=== PATIENT | female | born 1955 | race Caucasian/White ===

== ENCOUNTER → 2017-08-09 18:23 | Outpatient (CLI) | payer OTHER, SELFPAY | PROVIDERS: Family Provider Family Medicine; PCP Family Medicine; Visit Provider Family Medicine | DX: R30.0 Dysuria (principal) | CPT/HCPCS: 87077; 87086; 87088; 87186 ==

== ENCOUNTER → 2018-05-20 06:39 | Outpatient (CLI) | payer OTHER, SELFPAY ==
--- NOTE | 2018-05-20 07:00 | BI_ITS ---
MAMMOGRAPHY - BILATERAL SCREENING REASON FOR EXAM: Female, 62 years old. Routine annual screening examination. PERTINENT HISTORY: Mother with breast cancer. TECHNIQUE: Digital bilateral breast adela (3D mammographic acquisition) in the CC and MLO projections. 2-D mediolateral oblique (MLO) and craniocaudad (CC) views of both breasts were obtained. CAD: Full Field Digital Mammography with Computer Added Detection was performed. COMPARISON: Comparison is made with prior study dated May 05, 2017 and May 04, 2016. FINDINGS: Breast Composition: The breasts are heterogeneously dense, which may obscure small masses. There are no dominant masses or suspicious calcifications. No other significant abnormalities are identified. There has been no significant change since the prior study. BI/SCREENING MAMM (CAD), BILAT IMPRESSION: Stable bilateral screening mammogram. Yearly follow-up mammogram recommended. (A) ASSESSMENT CATEGORY: BIRADS Category 1: Negative. A letter regarding these results will be sent to the patient by the facility within 30 days. Approximately 10% of breast cancers are not detected by mammography. A normal mammogram should not delay biopsy of a clinically suspicious abnormality. [id number] Electronically Signed: Charlie Ellis MD at 9:05 EST Tel [phone], Service support ,
[2018-05-20 07:34] LABS: Absolute Lymphocyte Count 1.68 X10^3/ul (0.83-4.51); Absolute Neutrophil Count 3.6 X10^3/uL (2.0-7.7); Basophil# 0.01 X10^3/uL; Basophil% 0.2 % (0-1); Eosinophil# 0.15 X10^3/uL; Eosinophils% 2.6 % (0-5); Hematocrit 36.9 % (37-47); Hemoglobin 11.3 g/dl (12.0-15.0); Lymphocyte # 1.68 X10^3/ul (4.0); Lymphocyte % 28.9 % (19-41); Mean Corp Hgb Conc 30.6 g/gl (32-36); Mean Corpuscular Hgb 25.6 pg (27.0-32.0); Mean Corpuscular Volume 83.7 fL (81-99); Mean Platelet Vol. 10.4 fl (6.2-12.0); Monocyte# 0.41 X10^3/uL; Monocyte% 7.1 % (0-10); Neutrophil # 3.56 X10^3/uL (2.7-7.7); Neutrophil % 61.2 % (47-70); POSITIVE COUNT NO; POSITIVE DIFFERENTIAL NO; POSITIVE MORPHOLOGY NO; Platelet Count 275 K/mm3 (150-450); RBC Distribution Width CV 15.4 % (11.6-14.6); RBC Distribution Width SD 47.6 fl (35.1-43.9); Red Blood Count 4.41 M/mm3 (4.2-5.4); White Blood Count 5.8 K/mm3 (4.4-11.0)
[2018-05-20 07:58] LABS: ALB/GLOB Ratio 0.8 RATIO (0.9-2.4); AST(SGOT) 23 U/L (15-37); Alanine Aminotransfer ALT/SGPT 30 U/L (13-56); Albumin, Serum 3.3 g/dL (3.2-5.0); Alkaline Phosphatase 70 U/L (45-117); Anion Gap 7 (5-15); BUN 20 mg/dL (7-18); BUN/Creat Ratio 21.3 RATIO (10-20); Calcium,Total 8.9 mg/dL (8.5-10.1); Chloride 107 mmol/L (98-107); Cholesterol 182 mg/dL (200); Creatinine, Serum 0.94 mg/dL (0.55-1.02); EST Glomerular Filtration Rate 64 mL/min (>60); Est Glom Filt Rate - Afr Amer 77 mL/min (>60); Globulin 3.9 g/dL (2.2-4.2); Glucose 87 mg/dL (74-106); High Density Lipoprotein 57 mg/dL; Potassium 4.1 mmol/L (3.5-5.1); Protein, Total 7.2 g/dL (6.4-8.2); Sodium Level 143 mmol/L (136-145); T4 Free Direct 1.14 ng/dL (0.76-1.46); Thyroid Stim Hormone (TSH) 1.73 uIU/mL (0.358-3.74); Triglycerides 80 mg/dL; Very Low Density Lipoprotein 16 mg/dL (5-40)
== END ==
PROVIDERS: Family Provider Family Medicine; PCP Family Medicine; Referring Provider Family Medicine; Visit Provider Family Medicine
DX: Z12.31 Encounter for screening mammogram for malignant neoplasm of breast (principal); E03.9 Hypothyroidism, unspecified; E78.5 Hyperlipidemia, unspecified; Z51.81 Encounter for therapeutic drug level monitoring
CPT/HCPCS: 36415; 77063; 77067; 80053; 80061; 84439; 84443; 85025

== ENCOUNTER → 2018-11-03 06:26 | Outpatient (CLI) | payer MEDICARE, SELFPAY ==
[2018-10-18 11:40] VITALS: BMI 28.0
--- NOTE | 2018-11-04 12:56 | STRESSREP ---
Stress Test Report Date: November 03, 2018 Procedure: Exercise tolerance test/imaging study Indications: Abnormal calcium score Consent: Per the patient Procedure: The patient exercised on a Reji protocol for 7 minutes achieving a peak heart rate of 150 bpm (96 % predicted maximal heart rate) with a peak blood pressure 148/80 mmHg and a peak MET capacity of 8.5 METs. The baseline ECG demonstrated normal sinus rhythm half a millimeter ST depressions in the lateral leads and inferior leads. The peak exercise ECG demonstrated 1.[address] depression in the inferior and lateral leads. EKG during recovery revealed return of ST segments to baseline. These findings would be considered positive for exercise induced EKG changes of ischemia. However presence of baseline ST abnormalities reduces the specificity of these results. [There were no cardiac dysrhythmias pretest, during exercise, or recovery]. The functional capacity was considered normal for age. There was [no complaint of chest discomfort during exercise or recovery]. The examination was discontinued secondary to dyspnea. Impression: 1. Technically adequate (percent predicted maximal heart rate greater than 85%) exercise tolerance test 2. Stress test is positive for exercise-induced EKG changes of ischemia. However due to baseline ST T changes the specificity of this findings is reduced. 3. The test test negative for exercise-induced chest pain 4. Functional capacity is normal for age. 5. Nuclear images pending Myocardial perfusion imaging study: Technique: The patient was injected with 11.8 mCi of technetium 99m Cardiolite and subsequently rest SPECT Cardiolite nuclear imaging was obtained in the horizontal long, vertical long, and short axis views. The patient exercised on a Reji protocol for 7 minutes achieving a peak heart rate of 150 bpm (96 % predicted maximal heart rate) with a peak blood pressure 148/80 mmHg and a peak MET capacity of 8.5 METs. The patient was injected with 33.2 mCi of technetium 99m Cardiolite and subsequently stress SPECT Cardiolite nuclear imaging was obtained in the horizontal long, vertical long, and short axis views. A gated Cardiolite study at peak stress was obtained. Interpretation: Rest and stress SPECT Cardiolite nuclear imaging status post realignment, normalization, and attenuation correction, demonstrates mildly decreased radioisotope uptake in the apex in both the rest and stress images. There is no significant reversibility suggestive of significant ischemia. The gated Cardiolite study demonstrates no significant regional wall motion abnormalities. The reported LVEF is 53 %. These findings are suggestive of apical thinning, a normal variant. Impression: 1. There is no evidence of significant ischemia or infarction. 2. The gated Cardiolite study reports an LVEF of 53 %. This note was generated with [employer] dictation software. It may contain incorrect words, spelling, and punctuation that were not noted in checking the note before signing.
== END ==
PROVIDERS: Family Provider Family Medicine; PCP Family Medicine; Referring Provider Specialist; Visit Provider Specialist
DX: R93.1 Abnormal findings on diagnostic imaging of heart and coronary circulation (principal); R06.00 Dyspnea, unspecified
CPT/HCPCS: 78452; 93017; A9500; A4216

== ENCOUNTER → 2018-11-25 09:13 | Outpatient (CLI) | payer MEDICARE, SELFPAY ==
[2018-11-21 13:35] VITALS: BMI 28.2
--- NOTE | 2018-11-25 09:37 | RAD_ITS ---
STUDY: X-RAY CHEST REASON FOR EXAM: Female, 63 years old. Chest pain/pressure TECHNIQUE: PA and lateral views of the chest. COMPARISON: 2011 FINDINGS: There are interstitial fibrotic changes of the lungs. There is no demonstrated pleural abnormality. Normal size heart. Normal mediastinum and sudhir. Normal visualized pulmonary arteries. Normal visualized aortic arch and descending thoracic aorta. Normal visualized thoracic spine. Normal visualized ribs, clavicles, and shoulders. There is no demonstrated abnormality of the visualized soft tissue structures of the upper abdomen. RAD/Chest PA and Lateral IMPRESSION: No acute pulmonary process Electronically Signed: Jonathon Nesbitt MD at 11:52 EDT , Service support ,
[2018-11-25 10:00] LABS: Absolute Lymphocyte Count 1.53 X10^3/ul (0.83-4.51); Absolute Neutrophil Count 3.1 X10^3/uL (2.0-7.7); Basophil# 0.01 X10^3/uL; Basophil% 0.2 % (0-1); Eosinophil# 0.24 X10^3/uL; Eosinophils% 4.6 % (0-5); Hematocrit 38.2 % (37-47); Hemoglobin 11.9 g/dl (12.0-15.0); Lymphocyte # 1.53 X10^3/ul (4.0); Lymphocyte % 29.5 % (19-41); Mean Corp Hgb Conc 31.2 g/gl (32-36); Mean Corpuscular Hgb 24.5 pg (27.0-32.0); Mean Corpuscular Volume 78.8 fL (81-99); Mean Platelet Vol. 11.1 fl (6.2-12.0); Monocyte# 0.34 X10^3/uL; Monocyte% 6.6 % (0-10); Neutrophil # 3.05 X10^3/uL (2.7-7.7); Neutrophil % 58.9 % (47-70); POSITIVE COUNT NO; POSITIVE DIFFERENTIAL NO; POSITIVE MORPHOLOGY NO; Platelet Count 253 K/mm3 (150-450); RBC Distribution Width CV 16.6 % (11.6-14.6); RBC Distribution Width SD 47.7 fl (35.1-43.9); Red Blood Count 4.85 M/mm3 (4.2-5.4); White Blood Count 5.2 K/mm3 (4.4-11.0)
[2018-11-25 10:21] LABS: Anion Gap 3 (5-15); BUN 19 mg/dL (7-18); BUN/Creat Ratio 22.2 RATIO (10-20); Calcium,Total 9.2 mg/dL (8.5-10.1); Chloride 109 mmol/L (98-107); Creatinine, Serum 0.85 mg/dL (0.55-1.02); EST Glomerular Filtration Rate 71 mL/min (>60); Est Glom Filt Rate - Afr Amer 86 mL/min (>60); Glucose 97 mg/dL (74-106); Potassium 4.3 mmol/L (3.5-5.1); Sodium Level 138 mmol/L (136-145)
== END ==
PROVIDERS: Family Provider Family Medicine; PCP Family Medicine; Referring Provider Specialist; Visit Provider Specialist
DX: R94.39 Abnormal result of other cardiovascular function study (principal); R93.1 Abnormal findings on diagnostic imaging of heart and coronary circulation
CPT/HCPCS: 36415; 71046; 80048; 85025

== ENCOUNTER 2018-12-19 08:02 | Day surgery (SDC) | payer MEDICARE, SELFPAY ==
[2018-11-21 13:35] VITALS: BMI 28.2
[2018-12-16 08:59] VITALS: BMI 28.2
--- NOTE | 2018-12-19 11:27 | CL.D_ITS ---
Patient Name: YULISA WONG Study Date: 12/19/2018 Performing: Glory Soto MD Ht: 66.14 inches 168 cm : 1955 Wt: 174.17 lbs 79 kg Age: 63 Gender: female BSA: 1.89 PROCEDURE(S) PERFORMED [facility] CLINICAL PROFILE AND INDICATIONS Indications: Abnormal Ca score and stress test Heart Failure: None Stress/Imaging Date: 11/03/18 CAD Presentations: No Sxs, no angina. CONCLUSIONS CAD as described RECOMMENDATIONS As patient is asymptomatic from CAD standspoint, it will be reasonable to treat her medically at this time. DESCRIPTION OF PROCEDURE The patient arrived to the procedure lab. The risks and benefits of the procedure as well as a full d escription of our services here and current unavailability of surgical backup were fully explained to the patient and/or their significant other prior to the catheterization. The Timeout was completed, verifying the correct patient and procedure. The patient's procedural site was prepped and draped in the usual fashion. Local anesthetic was given subcutaneously to right radial region with Lidocaine 2% . Using a modified Seldinger technique, arterial access was obtained via the right radial artery, a 6 Fr sheath was inserted. Left Coronary Artery selective angiography was performed in multiple views u sing a 5 Fr. 4.0 Lettsworth catheter. Right Coronary Artery selective angiography was then performed in mu ltiple views using a 5 Fr. JR 4 catheter. Left Ventriculography was performed in GARCIA projection using a 5 Fr.. LV to AO pullback pressures were then recorded.The arterial sheath was pulled and a TR Band was applied for hemostasis CORONARY ANGIOGRAPHY DOMINANCE: Right Dominant LEFT HEART ASSESSMENT Left Ventricular Ejection Fraction: by LV Gram 50-55 % Normal LV wall motion LEFT MAIN: Mild luminal irregularities LEFT ANTERIOR DESCENDING ARTERY: MID LAD: 70 % Stenosis, 50 % Stenosis DIAGONAL 1: Mid - 70 % Stenosis CIRCUMFLEX ARTERY: Mild luminal irregularities OM 2: Proximal - 30 % Stenosis RIGHT CORONARY ARTERY: Mild luminal irregularities VALVE FINDINGS: No Aortic Valve Stenosis No Mitral Insufficency COMPLICATIONS No Complications PROCEDURE MEDICATIONS Versed 1 mg IV Fentanyl 50 mcg IV Oxygen: 2 L/min via nasal cannula Heparin given IA 12/19/2018 10:39:29 Verapamil 2.5mg, Ntg 100mcgs, 3000 units of Heparin given IA 12/19/2018 10:39:29 SUMMARY OF HEMODYNAMIC DATA Time AIR REST ECG 08:26:13 AO 108/72 (90) SA 10:42:11 LV 123/-7, 6 10:49:51 LV 124/-7, 7 10:50:03 LV 122/-11, 5 10:50:41 LV 130/-11, 5 10:50:48 LVp 127/-9, 9 10:51:08 AOp 122/56 (85) 10:51:14 11:09:29 Signed By Glory Soto MD On 12/19/2018 11:26:33 AM Glory Soto MD
== END 2018-12-19 12:30 | disposition home or self-care (01) ==
LOC: CLSP 08:03
PROVIDERS: Family Provider Family Medicine; PCP Family Medicine; Referring Provider Specialist; Visit Provider Specialist
DX: I25.10 Atherosclerotic heart disease of native coronary artery without angina pectoris (principal); R93.1 Abnormal findings on diagnostic imaging of heart and coronary circulation; R94.39 Abnormal result of other cardiovascular function study; Z82.49 Family history of ischemic heart disease and other diseases of the circulatory system; K21.9 Gastro-esophageal reflux disease without esophagitis; E03.9 Hypothyroidism, unspecified; Z79.82 Long term (current) use of aspirin
CPT/HCPCS: 93458; 99152; 99153; J7040; C1769; C1894; Q9967

== ENCOUNTER → 2019-05-06 07:13 | Outpatient (CLI) | payer MEDICARE, SELFPAY ==
[2019-01-09 10:59] VITALS: BMI 27.7
[2019-05-06 08:28] LABS: AST(SGOT) 31 U/L (15-37); Alanine Aminotransfer ALT/SGPT 38 U/L (13-56); Albumin, Serum 3.3 g/dL (3.2-5.0); Alkaline Phosphatase 99 U/L (45-117); Cholesterol 153 mg/dL (200); High Density Lipoprotein 62 mg/dL; Protein, Total 7.3 g/dL (6.4-8.2); Triglycerides 94 mg/dL; Very Low Density Lipoprotein 19 mg/dL (5-40)
== END ==
PROVIDERS: Family Provider Family Medicine; PCP Family Medicine; Referring Provider Specialist; Visit Provider Specialist
DX: E78.5 Hyperlipidemia, unspecified (principal); R93.1 Abnormal findings on diagnostic imaging of heart and coronary circulation
CPT/HCPCS: 36415; 80061; 80076

== ENCOUNTER → 2019-06-22 09:23 | Outpatient (CLI) | payer MEDICARE, SELFPAY ==
[2019-01-09 10:59] VITALS: BMI 27.7
[2019-05-22 11:36] VITALS: BMI 28.2
--- NOTE | 2019-06-22 09:26 | BI_ITS ---
MAMMOGRAPHY - BILATERAL SCREENING REASON FOR EXAM: Female, 63 years old. Routine annual screening examination. PERTINENT HISTORY: Mother with breast cancer. TECHNIQUE: Digital bilateral breast radha (3D mammographic acquisition) in the CC and MLO projections. 2-D mediolateral oblique (MLO) and craniocaudad (CC) views of both breasts were obtained. CAD: Full Field Digital Mammography with Computer Added Detection was performed. COMPARISON: Comparison is made with prior study dated May 20, 2018 and May 05, 2017. FINDINGS: Breast Composition: The breasts are heterogeneously dense, which may obscure small masses. There are no dominant masses or suspicious calcifications. No other significant abnormalities are identified. There has been no significant change since the prior study. BI/SCREEN MAMM (CAD) W/RADHA BILAT IMPRESSION: Stable bilateral screening mammogram. Yearly follow-up mammogram recommended. (A) ASSESSMENT CATEGORY: BIRADS Category 1: Negative. A letter regarding these results will be sent to the patient by the facility within 30 days. Approximately 10% of breast cancers are not detected by mammography. A normal mammogram should not delay biopsy of a clinically suspicious abnormality. [id number] Electronically Signed: Charlie Ellis, at 11:07 EST , Service support ,
--- NOTE | 2019-06-22 09:28 | BD_ITS ---
STUDY: DUAL ENERGY X-RAY ABSORPTIOMETRY / DXA REASON FOR EXAM: Female, 63 years old. Age of naz- 54. Pat is 174.2# and 63 and quot; a loss of 1.5 and quot; per pat. Patient takes Levothyroxin and takes Risedronate. Exercises moderately. Family hx of osteo. Hx of a left elbow fx. TECHNIQUE: Bone Mineral Density (BMD) measurements of lumbar spine and bilateral hips were obtained. COMPARISON: Comparison is made with prior study dated January 14, 2010. FINDINGS: Lumbar Spine (L1-L4): g/cm2 (0.923) / T-score (-2.1) / Z-score (-0.5) Findings are suggestive of osteopenia with a high fracture risk. Increased thoracic kyphosis. Left Femur Total: g/cm2 (0.886) / T-score (-1.0) / Z-score (0.3) Left Femoral Neck: g/cm2 (0.780) / T-score (-1.9) / Z-score (-0.4) Right Femur Total: g/cm2 (0.887) / T-score (-1.0) / Z-score (0.3) Right Femoral Neck: g/cm2 (0.834) / T-score (-1.5) / Z-score (0.0) The T-Scores on the most recent prior examination were: Lumbar Spine (L1-L4): There has been worsening of bone density since the previous examination. Left Femur Total: which represents a worsening of 4.2%. Right Femur Total: which represents a worsening of 1.8%. BD/Dexa Bone Density Study IMPRESSION: The patient is considered osteopenic as outlined below according to World [employer] Organization (WHO) criteria with a high fracture risk. There has been worsening of bone density since the previous examination. Reference Information: The T-score is the number of standard deviations above or below the standard which is normal for young adults at their peak bone mineral density. The World Health Organization (WHO) interprets the T-scores as follows: Above -1 Normal bone density Between -1 and -2.5 Osteopenia Equal to / or below -2.5 Osteoporosis As a practical clinical guideline, osteopenia may be graded as follows: Mild -1 through -1.5 Moderate -1.6 through -2.0 Severe -2.1 through -2.4 The Z-score is the number of standard deviations above or below age-matched controls. A Z-score of less than -1.5 would be considered abnormal. References: 1. NIH Osteoporosis and Related Bone Diseases http://www.osteo.org 2. International Society for Clinical Densitometry http://www.iscd.org 3. National Osteoporosis Foundation http://www.nof.org Electronically Signed: Charlie Ellis, at 15:01 EST , Service support ,
== END ==
PROVIDERS: Family Provider Family Medicine; PCP Family Medicine; Referring Provider Family Medicine; Visit Provider Family Medicine
DX: Z12.31 Encounter for screening mammogram for malignant neoplasm of breast (principal); M81.0 Age-related osteoporosis without current pathological fracture; M85.80 Other specified disorders of bone density and structure, unspecified site
CPT/HCPCS: 77063; 77067; 77080

== ENCOUNTER → 2020-05-17 06:14 | Outpatient (CLI) | payer MEDICARE, SELFPAY ==
[2019-05-22 11:36] VITALS: BMI 28.2
[2020-05-17 07:43] LABS: AST(SGOT) 49 U/L (15-37); Alanine Aminotransfer ALT/SGPT 87 U/L (13-56); Albumin, Serum 3.5 g/dL (3.2-5.0); Alkaline Phosphatase 104 U/L (45-117); Bilirubin, Direct 0.16 mg/dL (0.00-0.30); Cholesterol 153 mg/dL (200); Globulin 3.6 g/dL (2.2-4.2); High Density Lipoprotein 56 mg/dL; Protein, Total 7.1 g/dL (6.4-8.2); Triglycerides 70 mg/dL; Very Low Density Lipoprotein 14 mg/dL (5-40)
== END ==
PROVIDERS: PCP Family Medicine; Referring Provider Nurse Practitioner Family; Visit Provider Nurse Practitioner Family
DX: E78.00 Pure hypercholesterolemia, unspecified (principal); E78.5 Hyperlipidemia, unspecified
CPT/HCPCS: 36415; 80061; 80076

== ENCOUNTER → 2020-07-03 07:54 | Outpatient (CLI) | payer MEDICARE, SELFPAY ==
[2020-05-22 11:30] VITALS: BMI 28.8
--- NOTE | 2020-07-03 07:57 | BI_ITS ---
MAMMOGRAPHY - BILATERAL SCREENING REASON FOR EXAM: Female, 64 years old. Routine annual screening examination. PERTINENT HISTORY: Mother with breast cancer. TECHNIQUE: Digital bilateral breast radha (3D mammographic acquisition) in the CC and MLO projections. 2-D mediolateral oblique (MLO) and craniocaudad (CC) views of both breasts were obtained. CAD: Full Field Digital Mammography with Computer Added Detection was performed. COMPARISON: Comparison is made with prior study dated 06/22/2019 and 05/20/2018. FINDINGS: Breast Composition: The breasts are heterogeneously dense, which may obscure small masses. There are no dominant masses or suspicious calcifications. No other significant abnormalities are identified. There has been no significant change since the prior study. BI/SCRN MAMM (CAD)W/RADHA BILAT IMPRESSION: Stable bilateral screening mammogram. Yearly follow-up mammogram recommended. (A) ASSESSMENT CATEGORY: BIRADS Category 1: Negative. A letter regarding these results will be sent to the patient by the facility within 30 days. Approximately 10% of breast cancers are not detected by mammography. A normal mammogram should not delay biopsy of a clinically suspicious abnormality. [id number] Electronically Signed: Charlie Ellis MD at 8:42 EST , Service support ,
== END ==
PROVIDERS: PCP Family Medicine; Referring Provider Family Medicine; Visit Provider Family Medicine
DX: Z12.31 Encounter for screening mammogram for malignant neoplasm of breast (principal); Z80.3 Family history of malignant neoplasm of breast
CPT/HCPCS: 77063; 77067

== ENCOUNTER 2020-08-15 16:03 | Outpatient (RCR) | payer MEDICARE, SELFPAY ==
[2020-05-22 11:30] VITALS: BMI 28.8
[2020-08-15] MEDS: COVID-19 VACC, MRNA(PFIZER)/PF 30 MCG/0.3 ML SYRINGE IM (07:54)
[2020-09-05] MEDS: COVID-19 VACC, MRNA(PFIZER)/PF 30 MCG/0.3 ML SYRINGE IM (07:39)
== END 2020-08-15 23:59 ==
LOC: IMMUN 16:03
PROVIDERS: PCP Family Medicine; Visit Provider Family Medicine
DX: Z23 Encounter for immunization (principal)
CPT/HCPCS: 0001A; 0002A

== ENCOUNTER → 2020-10-15 07:20 | Outpatient (CLI) | payer MEDICARE, SELFPAY ==
[2020-05-22 11:30] VITALS: BMI 28.8
[2020-10-15 08:15] LABS: ALB/GLOB Ratio 0.8 RATIO (0.9-2.4); AST(SGOT) 34 U/L (15-37); Alanine Aminotransfer ALT/SGPT 60 U/L (13-56); Albumin, Serum 3.3 g/dL (3.2-5.0); Alkaline Phosphatase 96 U/L (45-117); Anion Gap 5 (5-15); BUN 17 mg/dL (7-18); Calcium,Total 9.5 mg/dL (8.5-10.1); Chloride 105 mmol/L (98-107); Cholesterol 166 mg/dL (200); Creatinine, Serum 0.85 mg/dL (0.55-1.02); EST Glomerular Filtration Rate 71 mL/min (>60); Est Glom Filt Rate - Afr Amer 86 mL/min (>60); Globulin 3.9 g/dL (2.2-4.2); Glucose 91 mg/dL (74-106); High Density Lipoprotein 58 mg/dL; Protein, Total 7.2 g/dL (6.4-8.2); Sodium Level 138 mmol/L (136-145); Triglycerides 96 mg/dL; Very Low Density Lipoprotein 19 mg/dL (5-40)
== END ==
PROVIDERS: PCP Family Medicine; Referring Provider Specialist; Visit Provider Specialist
DX: E78.00 Pure hypercholesterolemia, unspecified (principal); I25.10 Atherosclerotic heart disease of native coronary artery without angina pectoris
CPT/HCPCS: 36415; 80053; 80061

== ENCOUNTER → 2020-12-14 08:52 | Outpatient (CLI) | payer MEDICARE, SELFPAY ==
[2020-05-22 11:30] VITALS: BMI 28.8
[2020-12-14 09:19] LABS: Absolute Lymphocyte Count 1.53 X10^3/uL (0.83-4.51); Absolute Neutrophil Count 2.8 X10^3/uL (2.0-7.7); Basophil# 0.02 X10^3/uL; Basophil% 0.4 % (0-1); Eosinophil# 0.09 X10^3/uL; Eosinophils% 1.9 % (0-5); Hematocrit 44.3 % (37-47); Lymphocyte # 1.53 X10^3/ul (0.83-4.51); Lymphocyte % 31.9 % (19-41); Mean Corp Hgb Conc 31.6 g/dL (32-36); Mean Corpuscular Hgb 28.4 pg (27.0-32.0); Mean Corpuscular Volume 89.9 fL (81-99); Mean Platelet Vol. 11.1 fl (6.2-12.0); Monocyte# 0.37 X10^3/uL; Monocyte% 7.7 % (0-10); NRBC Flagged by Analyzer 0 % (0-5); Neutrophil # 2.78 X10^3/uL (2.7-7.7); Neutrophil % 57.9 % (47-70); Platelet Count 223 K/mm3 (150-450); RBC Distribution Width SD 42.6 fl (35.1-43.9); Red Blood Count 4.93 M/mm3 (4.2-5.4); White Blood Count 4.8 K/mm3 (4.4-11.0)
[2020-12-14 09:54] LABS: Free T3 2.5 pg/mL (2.18-3.98); T4 Free Direct 1.23 ng/dL (0.76-1.46); Thyroid Stim Hormone (TSH) 0.89 uIU/mL (0.358-3.74)
== END ==
PROVIDERS: PCP Family Medicine; Referring Provider Family Medicine; Visit Provider Family Medicine
DX: Z51.81 Encounter for therapeutic drug level monitoring (principal); E03.9 Hypothyroidism, unspecified
CPT/HCPCS: 36415; 84439; 84443; 84481; 85025

== ENCOUNTER → 2021-05-17 07:30 | Outpatient (CLI) | payer MEDICARE, SELFPAY ==
[2021-05-17 08:18] LABS: AST(SGOT) 37 U/L (15-37); Alanine Aminotransfer ALT/SGPT 64 U/L (13-56); Albumin, Serum 3.3 g/dL (3.2-5.0); Alkaline Phosphatase 109 U/L (45-117); Bilirubin, Direct 0.12 mg/dL (0.00-0.30); Cholesterol 134 mg/dL (200); Globulin 3.9 g/dL (2.2-4.2); High Density Lipoprotein 55 mg/dL; Protein, Total 7.2 g/dL (6.4-8.2); Triglycerides 66 mg/dL; Very Low Density Lipoprotein 13 mg/dL (5-40)
== END ==
PROVIDERS: PCP Family Medicine; Referring Provider Nurse Practitioner Family; Visit Provider Nurse Practitioner Family
DX: E78.00 Pure hypercholesterolemia, unspecified (principal); E78.5 Hyperlipidemia, unspecified
CPT/HCPCS: 36415; 80061; 80076

== ENCOUNTER 2021-07-15 12:47 | Outpatient (CLI) | payer MEDICARE, SELFPAY ==
--- NOTE | 2021-07-15 12:52 | BI_ITS ---
MAMMOGRAPHY - BILATERAL SCREENING REASON FOR EXAM: Female, 65 years old. Routine annual screening examination. PERTINENT HISTORY: Mother with breast cancer. TECHNIQUE: Digital bilateral breast radha (3D mammographic acquisition) in the CC and MLO projections. 2-D mediolateral oblique (MLO) and craniocaudad (CC) views of both breasts were obtained. CAD: Full Field Digital Mammography with Computer Added Detection was performed. COMPARISON: Comparison is made with prior study dated 07/03/2020 and 06/22/2019. FINDINGS: Breast Composition: The breasts are heterogeneously dense, which may obscure small masses. There are no dominant masses or suspicious calcifications. Stable small benign-appearing bilateral axillary lymph nodes. No other significant abnormalities are identified. There has been no significant change since the prior study. BI/SCRN MAMM (CAD)W/RADHA BILAT IMPRESSION: Stable bilateral screening mammogram. Yearly follow-up mammogram recommended. (A) ASSESSMENT CATEGORY: BIRADS Category 2: Benign. A letter regarding these results will be sent to the patient by the facility within 30 days. Approximately 10% of breast cancers are not detected by mammography. A normal mammogram should not delay biopsy of a clinically suspicious abnormality. [id number] Electronically Signed: Charlie Ellis MD at 14:35 EST ,
--- NOTE | 2021-07-15 13:06 | BD_ITS ---
STUDY: DUAL ENERGY X-RAY ABSORPTIOMETRY / DXA REASON FOR EXAM: Female, 65 years old. V780. The patient is postmenopausal. TECHNIQUE: Bone Mineral Density (BMD) measurements of lumbar spine and bilateral hips were obtained. COMPARISON: Comparison is made with prior study dated 06/22/2019. FINDINGS: Lumbar Spine (L1-L4): g/cm2 (0.820) / T-score (-2.1) / Z-score (-0.1) Findings are suggestive of osteopenia with a high fracture risk. Left Femur Total: g/cm2 (0.802) / T-score (-1.2) / Z-score (0.2) Left Femoral Neck: g/cm2 (0.568) / T-score (-2.5) / Z-score (-0.9) Right Femur Total: g/cm2 (0.831) / T-score (-0.9) / Z-score (0.5) Right Femoral Neck: g/cm2 (0.630) / T-score (-2.0) / Z-score (-0.3) The T-Scores on the most recent prior examination were: Lumbar Spine (L1-L4): There has been improvement of bone density since the previous examination. Left Femur Total: which represents a worsening of 2.7%. Right Femur Total: which represents an improvement of 0.9%. BD/Dexa Bone Density Study IMPRESSION: The patient is considered osteopenic as outlined below according to World [employer] Organization (WHO) criteria with a high fracture risk. There has been improvement of bone density since the previous examination. Reference Information: The T-score is the number of standard deviations above or below the standard which is normal for young adults at their peak bone mineral density. The World Health Organization (WHO) interprets the T-scores as follows: Above -1 Normal bone density Between -1 and -2.5 Osteopenia Equal to / or below -2.5 Osteoporosis As a practical clinical guideline, osteopenia may be graded as follows: Mild -1 through -1.5 Moderate -1.6 through -2.0 Severe -2.1 through -2.4 The Z-score is the number of standard deviations above or below age-matched controls. A Z-score of less than -1.5 would be considered abnormal. References: 1. NIH Osteoporosis and Related Bone Diseases www osteo.org 2. International Society for Clinical Densitometry www iscd.org 3. National Osteoporosis Foundation www nof.org Electronically Signed: Charlie Ellis MD at 12:24 EST ,
== END 2021-07-15 23:59 | disposition short-term general hospital (02) ==
PROVIDERS: PCP Family Medicine; Referring Provider Family Medicine; Visit Provider Family Medicine
DX: Z12.31 Encounter for screening mammogram for malignant neoplasm of breast (principal); Z78.0 Asymptomatic menopausal state; Z80.3 Family history of malignant neoplasm of breast
CPT/HCPCS: 77063; 77067; 77080

== ENCOUNTER 2021-11-06 10:00 | Outpatient (RCR) | payer MEDICARE, SELFPAY ==
--- NOTE | 2021-10-21 09:10 | HP.PTEVAL_ITS ---
Patient's Visit Information YULISA WONG is a 65 year old F referred to Physical Therapy by Dr. Jessika Pink DO with a diagnosis of Hip Pain. Date of Evaluation: 10/21/21 Physical Therapist: Shana Cash DPT - Visit Plan Frequency: 2x /Week Duration: 4 Weeks Plan: Ultrasound- gentle hip and core strength/stabilization. HEP Given: gentle stretching into right SB and rotation - Subjective Patient reports that she is working on cleaning out her mothers house- she has pain now in her left hip for about 4 weeks. She went to chiro and that did not help. Pain is located on top of the iliac crest on the left hip. Best: 0/10 Eases: sitting or standing. Agg: side bending to the right, getting up from sitting, twisting. Feels more muscular. Describes the pain as dull and achy. Worst: 6/10. Sleep: stomach sleeper and it does wake her up when she transitions back and forth- but its getting better and not waking her up any more. No radiating pain. No history of back pain or hip pain. Walks about 2 miles a day- and it doesn't bother her- no weight lifting. No N/T in her toes. No loss or change of bowel or bladder. Work: retired teacher. PMHx: Hiatal Hernia Meds: omeprazole, atorvastatin, Imitrex (PRN), Levothyroxine - Objective Posture: FH, RS- can correct with verbal and tactile cues but does not maintain. Gait: no deviation noted. Transfers: sit to stand without UE A. HR/TR: able w ithout UE A. SLS: 30 sec without LOB or hip drop. ROM: Lumbar: WFL in all planes but reports discomfort with end range SB and rotation to the right, Hip/Knee/Ankle: WFL- no pain. Strength: Core: Fair, Hip: 4+/5 discomfort with IR/ER testing but not in the area she has pain, Knee: 5/5 Ankle: 5/5. Flex: HS: mild, Gastroc: mild. Palpation: not tender to touch - Special Tests L Hip Scour: Negative L Hip VITO - Intraarticular Pathology: Positive L Hip FADDIR - Labrum: Negative L Hip Impingement Provocation - Labrum: Negative L Hip Trendelenberg - Glut Medius: Negative L Hip Brittney - IT Band: Negative - Balance/Special Test Scores Lower Extremity Functional Score: 70 - Goals Goal 1:: Patient will be I with HEP and progression Goal Time Frame: 4-6 Weeks Goal 2:: Patient will maintain proper posture t/o tx session to demo increased core s/s Goal Time Frame: 4-6 Weeks Goal 3:: Patient will report no pain with all lumbar ROM Goal Time Frame: 4-6 Weeks Goal 4:: Patient will report 80% improvement Goal Time Frame: 4-6 Weeks - Rehabilitation Potential Physical Therapy Diagnosis: Patient presents with hypomobility- she has decreased LE and core strength/stabilization leading to poor body mechanics when lifting and increased pain in the left hip. Rehabilitation Potential: Good - Anticipated Interventions Patient/Client Instruction: Educate patient on: Benefits of Fitness Program Therapeutic Exercise to Include: Strength training, Endurance training, Balance training, Coordination, Agility training, Body mechanics, Postural training, Flexibilty training, Gait and locomotor training, Neuromotor development, Dynamic Lumbar Stabilization, Scapular Strength/Stabilization For the Purpose of:: To improve muscle performance and motor function TENS: Yes Cryotherapy (ice pack, ice massage): Yes Thermo therapy (hot pack): Yes Ultrasound (thermal/non thermal): Yes For the Purpose of:: To decrease pain Thank you for the opportunity to evaluate your patient. For Medicare and Medicare HMO plans, please review the plan of care and approve it. It will need to be FAXED BACK to us at [phone] for Medicare purposes. For Medicare only, by signing this I certify the plan of care. Please let me know if there are questions or concerns regarding this plan of care. Physician Signature: Date:
--- NOTE | 2021-11-06 10:12 | HP.PTDCSUM ---
It has been my pleasure to treat UYLISA WONG referred by Dr. Jessika Pink DO, with the diagnosis of Hip Pain for a total of 5 visit(s). Discharge Date: Please see the following information for a summary of their discharge status. Subjective: Patient reports that she has a torn tendon in her foot and it feels like its vivi the same. She has been doing the exercises but it comes back- she has relief for about an hour. If she is walking she is okay. Last weekend her back was bothering her but now its okay. She was sitting for long periods of time in a hard back chair or office chair its bad but the couch makes it better. Does not have an appt with her MD- so she plans to give them a call. Left Iliac Crest Pain Intensity (Out of 10): 5 % Improvement: 0 Objective/Function: Posture: FH, RS- can correct with verbal and tactile cues but does not maintain. Gait: no deviation noted. Transfers: sit to stand without UE A. HR/TR: able without UE A. SLS: 30 sec without LOB or hip drop. ROM: Lumbar: WFL in all planes but reports discomfort with end range SB and rotation to the right, Hip/Knee/Ankle: WFL- no pain. Strength: Core: Fair, Hip: 4+/5 discomfort with IR/ER testing but not in the area she has pain, Knee: 5/5 Ankle: 5/5. Flex: HS: mild, Gastroc: mild. Palpation: not tender to touch. No objective changes since IE Goal 1:: Patient will be I with HEP and progression Goal Progress: Goal Met Goal 2:: Patient will maintain proper posture t/o tx session to demo increased core s/s Goal Progress: Not Progressing Goal 3:: Patient will report no pain with all lumbar ROM Goal Progress: Not Progressing Goal 4:: Patient will report 80% improvement Goal Progress: Not Progressing Plan: 11/06: Return to MD for further evaluation- continue stretches as tolerated If there are questions or concerns regarding this patient's physical therapy, please feel free to call me at [phone]. Thank you for the referral of this patient. Sincerely, Shana Cash, DPT Balance/Gait/Functional tests - Balance/Special Test Scores Lower Extremity Functional Score: 69
== END 2021-11-06 16:26 | disposition home or self-care (01) ==
LOC: PT 10:00
PROVIDERS: PCP Family Medicine; Referring Provider Family Medicine; Visit Provider Family Medicine
DX: M25.552 Pain in left hip (principal)
CPT/HCPCS: 97035; 97110; 97162; 97164

== ENCOUNTER → 2021-11-24 | Outpatient (CLI) | payer MEDICARE, SELFPAY ==
--- NOTE | 2021-11-24 11:47 | RAD_ITS ---
STUDY: X-RAY - PELVIS AND LEFT HIP REASON FOR EXAM: Female, 66 years old. Pain. TECHNIQUE: 3 views of the pelvis and hip. COMPARISON: None. FINDINGS: There is a non-specific bowel gas pattern. Phleboliths. Osteopenia. Normal bilateral iliac wings, sacroiliac joints and visualized sacrum. Normal bilateral superior and inferior pubic rami. Mild arthrosis of the symphysis pubis. Normal bilateral ischial tuberosities. Mild arthrosis of both hips. 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 No acute abnormality, evidence of erosive changes or fusion. Electronically Signed: Austin Atwood MD at 13:26 EDT ,
== END | disposition home or self-care (01) ==
PROVIDERS: PCP Family Medicine; Referring Provider Family Medicine; Visit Provider Family Medicine
DX: M25.552 Pain in left hip (principal)
CPT/HCPCS: 73502

== ENCOUNTER → 2022-05-16 | Outpatient (CLI) | payer MEDICARE, SELFPAY ==
[2022-05-16 08:14] LABS: AST(SGOT) 37 U/L (15-37); Alanine Aminotransfer ALT/SGPT 65 U/L (13-56); Albumin, Serum 3.2 g/dL (3.2-5.0); Alkaline Phosphatase 101 U/L (45-117); Bilirubin, Direct 0.09 mg/dL (0.00-0.30); Cholesterol 133 mg/dL (200); Globulin 3.6 g/dL (2.2-4.2); High Density Lipoprotein 54 mg/dL; Protein, Total 6.8 g/dL (6.4-8.2); Triglycerides 89 mg/dL; Very Low Density Lipoprotein 18 mg/dL (5-40)
== END | disposition home or self-care (01) ==
LOC: LAB 07:09
PROVIDERS: PCP Family Medicine; Visit Provider Internal Medicine Cardiovascular Disease
DX: E78.5 Hyperlipidemia, unspecified (principal); I25.10 Atherosclerotic heart disease of native coronary artery without angina pectoris
CPT/HCPCS: 36415; 80061; 80076

== ENCOUNTER → 2022-07-17 | Outpatient (CLI) | payer MEDICARE, SELFPAY ==
--- NOTE | 2022-07-17 08:17 | BI_ITS ---
MAMMOGRAPHY - BILATERAL SCREENING REASON FOR EXAM: Female, 66 years old. Routine annual screening examination. PERTINENT HISTORY: Mother with breast cancer. TECHNIQUE: Digital bilateral breast radha (3D mammographic acquisition) in the CC and MLO projections. 2-D mediolateral oblique (MLO) and craniocaudad (CC) views of both breasts were obtained. CAD: Full Field Digital Mammography with Computer Added Detection was performed. COMPARISON: Comparison is made with prior study dated 07/15/2021 and 07/03/2020. FINDINGS: Breast Composition: The breasts are heterogeneously dense, which may obscure small masses. There are no dominant masses or suspicious calcifications. No other significant abnormalities are identified. There has been no significant change since the prior study. BI/SCRN MAMM (CAD)W/RADHA BILAT IMPRESSION: Stable bilateral screening mammogram. Yearly follow-up mammogram recommended. (A) ASSESSMENT CATEGORY: BIRADS Category 1: Negative. A letter regarding these results will be sent to the patient by the facility within 30 days. Approximately 10% of breast cancers are not detected by mammography. A normal mammogram should not delay biopsy of a clinically suspicious abnormality. [id number] Electronically Signed: Charlie Ellis MD at 10:25 EST ,
== END | disposition home or self-care (01) ==
LOC: OPBI 08:15
PROVIDERS: PCP Family Medicine; Referring Provider Family Medicine; Visit Provider Family Medicine
DX: Z12.31 Encounter for screening mammogram for malignant neoplasm of breast (principal)
CPT/HCPCS: 77063; 77067

== ENCOUNTER → 2023-05-21 | Outpatient (CLI) | payer MEDICARE, SELFPAY ==
[2023-05-21 08:40] LABS: AST(SGOT) 46 U/L (15-37); Alanine Aminotransfer ALT/SGPT 78 U/L (13-56); Albumin, Serum 3.3 g/dL (3.2-5.0); Alkaline Phosphatase 112 U/L (45-117); Bilirubin, Direct 0.09 mg/dL (0.00-0.30); Cholesterol 160 mg/dL (200); Globulin 3.8 g/dL (2.2-4.2); High Density Lipoprotein 58 mg/dL; Protein, Total 7.1 g/dL (6.4-8.2); Triglycerides 76 mg/dL; Very Low Density Lipoprotein 15 mg/dL (5-40)
== END | disposition home or self-care (01) ==
LOC: LAB 07:36
PROVIDERS: PCP Family Medicine; Referring Provider Physician Assistant Medical; Visit Provider Physician Assistant Medical
DX: I25.10 Atherosclerotic heart disease of native coronary artery without angina pectoris (principal); E78.5 Hyperlipidemia, unspecified
CPT/HCPCS: 36415; 80061; 80076

== ENCOUNTER → 2023-08-10 | Outpatient (CLI) | payer MEDICARE, SELFPAY ==
--- NOTE | 2023-08-10 08:12 | BI_ITS ---
MAMMOGRAPHY - BILATERAL SCREENING REASON FOR EXAM: Female, 67 years old. Routine annual screening examination. PERTINENT HISTORY: Mother with breast cancer. TECHNIQUE: Digital bilateral breast radha (3D mammographic acquisition) in the CC and MLO projections. 2-D mediolateral oblique (MLO) and craniocaudad (CC) views of both breasts were obtained. CAD: Full Field Digital Mammography with Computer Added Detection was performed. COMPARISON: Comparison is made with prior study dated July 17, 2022 and July 15, 2021. FINDINGS: Breast Composition: The breasts are heterogeneously dense, which may obscure small masses. There are no dominant masses or suspicious calcifications. No other significant abnormalities are identified. There has been no significant change since the prior study. BI/SCRN MAMM (CAD)W/RADHA BILAT IMPRESSION: Stable bilateral screening mammogram. Yearly follow-up mammogram recommended. (A) ASSESSMENT CATEGORY: BIRADS Category 1: Negative. A letter regarding these results will be sent to the patient by the facility within 30 days. Approximately 10% of breast cancers are not detected by mammography. A normal mammogram should not delay biopsy of a clinically suspicious abnormality. [id number] Electronically Signed: Charlie Ellis MD at 8:29 EST ,
--- NOTE | 2023-08-10 08:23 | BD_ITS ---
STUDY: DUAL ENERGY X-RAY ABSORPTIOMETRY / DXA REASON FOR EXAM: Female, 67 years old. [id number] TECHNIQUE: Bone Mineral Density (BMD) measurements of lumbar spine and bilateral hips were obtained. COMPARISON: Comparison is made with prior study of July 15, 2021. FINDINGS: Lumbar Spine (L1-L4): g/cm2 (0.832) / T-score (-2.0) / Z-score (0.1) Findings are suggestive of osteopenia with a moderate fracture risk. Left Femur Total: g/cm2 (0.796) / T-score (-1.2) / Z-score (0.3) Left Femoral Neck: g/cm2 (0.592) / T-score (-2.3) / Z-score (-0.5) Right Femur Total: g/cm2 (0.821) / T-score (-1.0) / Z-score (0.5) Right Femoral Neck: g/cm2 (0.630) / T-score (-2.0) / Z-score (-0.2) The T-Scores on the most recent prior examination were: Lumbar Spine (L1-L4): There has been improvement of bone density since the previous examination. Left Femur Total: which represents a worsening of 0.6%. Right Femur Total: which represents a worsening of 1.2%. BD/Dexa Bone Density Study IMPRESSION: The patient is considered osteopenic as outlined below according to World [place] Organization (WHO) criteria with a high fracture risk. There has been worsening of bone density since the previous examination. Reference Information: The T-score is the number of standard deviations above or below the standard which is normal for young adults at their peak bone mineral density. The World Health Organization (WHO) interprets the T-scores as follows: Above -1 Normal bone density Between -1 and -2.5 Osteopenia Equal to / or below -2.5 Osteoporosis As a practical clinical guideline, osteopenia may be graded as follows: Mild -1 through -1.5 Moderate -1.6 through -2.0 Severe -2.1 through -2.4 The Z-score is the number of standard deviations above or below age-matched controls. A Z-score of less than -1.5 would be considered abnormal. References: 1. NIH Osteoporosis and Related Bone Diseases www osteo.org 2. International Society for Clinical Densitometry www iscd.org 3. National Osteoporosis Foundation www nof.org Electronically Signed: Charlie Ellis MD at 9:23 EST ,
== END | disposition home or self-care (01) ==
LOC: OPBD 08:10
PROVIDERS: PCP Family Medicine; Referring Provider Family Medicine; Visit Provider Family Medicine
DX: Z12.31 Encounter for screening mammogram for malignant neoplasm of breast (principal); Z80.3 Family history of malignant neoplasm of breast; Z78.0 Asymptomatic menopausal state
CPT/HCPCS: 77063; 77067; 77080

== ENCOUNTER → 2023-08-10 | Outpatient (CLI) | payer MEDICARE, SELFPAY ==
[2023-08-10 12:18] LABS: Absolute Lymphocyte Count 1.42 X10^3/uL (0.83-4.51); Absolute Neutrophil Count 3.4 X10^3/uL (2.0-7.7); Basophil# 0.01 X10^3/uL; Basophil% 0.2 % (0-1); Eosinophils% 1.8 % (0-5); Hematocrit 42.5 % (37-47); Hemoglobin 13.3 g/dL (12.0-15.0); Lymphocyte # 1.42 X10^3/ul (0.83-4.51); Lymphocyte % 26.2 % (19-41); Mean Corp Hgb Conc 31.3 g/dL (32-36); Mean Corpuscular Hgb 27.5 pg (27.0-32.0); Mean Corpuscular Volume 87.8 fL (81-99); Monocyte# 0.44 X10^3/uL; Monocyte% 8.1 % (0-10); NRBC Flagged by Analyzer 0 % (0-5); Neutrophil # 3.43 X10^3/uL (2.7-7.7); Neutrophil % 63.5 % (47-70); Platelet Count 216 K/mm3 (150-450); RBC Distribution Width CV 13.8 % (11.6-14.6); RBC Distribution Width SD 44.4 fl (35.1-43.9); Red Blood Count 4.84 M/mm3 (4.2-5.4); White Blood Count 5.4 K/mm3 (4.4-11.0)
[2023-08-10 13:10] LABS: ALB/GLOB Ratio 0.9 RATIO (0.9-2.4); AST(SGOT) 37 U/L (15-37); Alanine Aminotransfer ALT/SGPT 60 U/L (13-56); Albumin, Serum 3.3 g/dL (3.2-5.0); Alkaline Phosphatase 106 U/L (45-117); Anion Gap 4 (5-15); BUN 20 mg/dL (7-18); BUN/Creat Ratio 25.2 RATIO (10-20); Calcium,Total 9.7 mg/dL (8.5-10.1); Chloride 110 mmol/L (98-107); Creatinine, Serum 0.79 mg/dL (0.55-1.02); EST Glomerular Filtration Rate 76 mL/min (>60); Est Glom Filt Rate - Afr Amer 92 mL/min (>60); Free T3 2.7 pg/mL (2.18-3.98); Globulin 3.6 g/dL (2.2-4.2); Glucose 94 mg/dL (74-106); Potassium 4.3 mmol/L (3.5-5.1); Protein, Total 6.9 g/dL (6.4-8.2); Sodium Level 140 mmol/L (136-145); T4 Free Direct 1.31 ng/dL (0.76-1.46); Thyroid Stim Hormone (TSH) 1.08 uIU/mL (0.358-3.74)
== END | disposition home or self-care (01) ==
LOC: BFHLAB 08:55
PROVIDERS: PCP Family Medicine; Visit Provider Family Medicine
DX: E03.9 Hypothyroidism, unspecified (principal); Z51.81 Encounter for therapeutic drug level monitoring
CPT/HCPCS: 36415; 80053; 84439; 84443; 84481; 85025

== ENCOUNTER → 2023-12-28 | Outpatient (CLI) | payer MEDICARE, SELFPAY ==
[2023-12-28 11:33] LABS: AST(SGOT) 39 U/L (15-37); Alanine Aminotransfer ALT/SGPT 58 U/L (13-56); Albumin, Serum 3.3 g/dL (3.2-5.0); Alkaline Phosphatase 110 U/L (45-117); Cholesterol 160 mg/dL (200); Globulin 3.8 g/dL (2.2-4.2); High Density Lipoprotein 57 mg/dL; Protein, Total 7.1 g/dL (6.4-8.2); Triglycerides 136 mg/dL; Very Low Density Lipoprotein 27 mg/dL (5-40)
== END | disposition home or self-care (01) ==
LOC: LAB 06:59
PROVIDERS: PCP Family Medicine; Referring Provider Physician Assistant Medical; Visit Provider Physician Assistant Medical
DX: E78.00 Pure hypercholesterolemia, unspecified (principal)
CPT/HCPCS: 36415; 80061; 80076

== ENCOUNTER → 2024-05-26 | Outpatient (CLI) | payer MEDICARE, SELFPAY ==
--- NOTE | 2024-05-26 10:17 | MRI_ITS ---
STUDY: MRI BRAIN WITH AND WITHOUT CONTRAST (ATTENTION INTERNAL AUDITORY CANALS - I.A.C.''s) REASON FOR EXAM: Female, 68 years old. RIGHT TINNITUS, bilat hearing loss TECHNIQUE: Standardized multiplanar fat and water weighted pulse sequences were obtained. IV CLARISCAN 15ML was administered for the contrast portion of the examination. COMPARISON: None. FINDINGS: Normal bilateral temporal bones. Normal bilateral internal auditory canals. There is no demonstrated intracanalicular or cisternal vestibular schwannoma (acoustic neuroma). There is no enhancement of the bilateral VIIth or VIIIth cranial nerves. Normal bilateral cochlea, vestibules and semicircular canals. There is mild cerebral atrophy with widening of the extra-axial spaces and ventricular dilatation. There are a limited number of small white matter hyperintensities, distributed throughout the deep white matter tracts of the cerebral hemispheres, consistent with mild chronic white matter ischemic changes. There is no evidence for recent intracranial ischemia or other cause of cytotoxic edema on diffusion weighted imaging (DWI). Normal bilateral basal ganglia. Normal thalami. Normal flow voids within the major intracranial circulation suggesting patency by spin echo criteria. Normal venous enhancement. There is no enhancing intra-axial or extra-axial abnormality. There is no extra-axial fluid accumulation. Normal sella turcica, pituitary gland, infundibular stalk, optic chiasm and hypothalamus. Normal tectal plate and pineal gland. Normal midbrain, antione and medulla. Normal cerebellum. Normal basal cisterns. There is an ocular lens implant the left globe. Normal right globe. The intraorbital contents otherwise are normal. Normal visualized paranasal sinuses. Normal calvarium and skull base. Normal visualized soft tissue structures. Normal visualized upper cervical spine. MRI/Brain W/WO Contrast IMPRESSION: Involutional changes of the brain, as described above. No MR evidence of vestibular schwannoma (acoustic neuroma). Electronically Signed: Quan Armijo MD at 9:41 EST ,
[2024-05-26 11:00] LABS: CREATININE FINGERSTICK < 1.0 mg/dL (0.55-1.02); EGFR FINGERSTICK > 60.0000 mL/min (>60)
== END | disposition home or self-care (01) ==
PROVIDERS: PCP Family Medicine; Referring Provider Otolaryngology; Visit Provider Otolaryngology
DX: H93.11 Tinnitus, right ear (principal)
CPT/HCPCS: 70553; A9575

== ENCOUNTER → 2024-06-29 | Outpatient (CLI) | payer MEDICARE, SELFPAY ==
[2024-06-29 08:36] LABS: AST(SGOT) 29 U/L (15-37); Alanine Aminotransfer ALT/SGPT 47 U/L (13-56); Albumin, Serum 3.3 g/dL (3.2-5.0); Alkaline Phosphatase 110 U/L (45-117); Bilirubin, Direct 0.13 mg/dL (0.00-0.30); Cholesterol 141 mg/dL (200); Globulin 3.6 g/dL (2.2-4.2); High Density Lipoprotein 59 mg/dL; Protein, Total 6.9 g/dL (6.4-8.2); Triglycerides 92 mg/dL; Very Low Density Lipoprotein 18 mg/dL (5-40)
== END | disposition home or self-care (01) ==
LOC: LAB 07:23
PROVIDERS: PCP Family Medicine; Referring Provider Physician Assistant Medical; Visit Provider Physician Assistant Medical
DX: E78.00 Pure hypercholesterolemia, unspecified (principal)
CPT/HCPCS: 36415; 80061; 80076

== ENCOUNTER → 2024-07-28 | Outpatient (CLI) | payer MEDICARE, SELFPAY ==
--- NOTE | 2024-07-28 08:57 | CDU_ITS ---
Reason For Study Reason For Study: BLE Carotid Bruit Rt. Velocities/BP Lt. Velocities/BP Prox CCA 65.8/15.7 cm/sec. Prox CCA 125.3/23.0 cm/sec. Mid CCA 74.3/22.3 cm/sec. Mid CCA 83.0/21.6 cm/sec. Dist CCA 103.9/30.2 cm/sec. Dist CCA 80.9/23.7 cm/sec. Prox ICA 57.2/15.7 cm/sec. Prox ICA 73.2/26.5 cm/sec. Mid ICA 83.3/24.8 cm/sec. Mid ICA 91.6/37.6 cm/sec. Dist ICA 108.9/32.1 cm/sec. Dist ICA 62.5/18.8 cm/sec. Rt. ICA/CCA = 1.5. Lt. ICA/CCA = 1.1. Prox ECA 135.2/16.7 cm/sec. Prox ECA 128.6/23.3 cm/sec. Rt. Vert. 66.7/18.5 cm/sec. Lt. Vert. 44.1/12.7 cm/sec. Right Extracranial There is heterogeneous, irregular atherosclerotic plaque noted in the right common carotid artery. There is heterogeneous, irregular atherosclerotic plaque noted in the right internal carotid artery. There is intimal thickening but no significant atherosclerotic plaque noted in the right external carotid artery. Antegrade flow is noted in the right vertebral artery. Left Extracranial There is intimal thickening but no significant atherosclerotic plaque noted in the left common carotid artery. There is intimal thickening but no significant atherosclerotic plaque noted in the left internal carotid artery. There is intimal thickening but no significant atherosclerotic plaque noted in the left external carotid artery. Antegrade flow is noted in the left vertebral artery. Procedure Carotid Duplex [id number]. This is a Carotid Duplex examination using B-mode, color flow and specral Doppler. The exam was diagnostic. Exam performed in department. VL/Carotid Duplex Ultrasound Interpretation Summary Mild (<50%) stenosis right extracranial internal carotid. Normal left extracranial internal carotid. Patent and antegrade vertebrals bilaterally. Ordering Physician: Bhumi Haro Referring Physician: Jessika Pink Performed By: Domenico Root RVT
== END | disposition home or self-care (01) ==
LOC: CVS 08:57
PROVIDERS: PCP Family Medicine; Referring Provider Physician Assistant Medical; Visit Provider Physician Assistant Medical
DX: R09.89 Other specified symptoms and signs involving the circulatory and respiratory systems (principal)
CPT/HCPCS: 93880

== ENCOUNTER → 2024-08-11 | Outpatient (CLI) | payer MEDICARE, SELFPAY ==
--- NOTE | 2024-08-11 10:24 | BI_ITS ---
PROCEDURE: SCRN MAMM (CAD)W/RADHA BILAT REASON FOR EXAM: F, Age 68 y/o, presents for annual screening mammogram. Family history of breast cancer in her mother at 64. TECHNIQUE: Bilateral screening digital breast tomosynthesis with 2D and 3D images. Computer aided detection. COMPARISON: 08/10/2023, 07/17/2022 FINDINGS: There are scattered areas of fibroglandular density. No suspicious masses, areas of developing architectural distortion, or suspicious calcifications. BI/SCRN MAMM (CAD)W/RADHA BILAT IMPRESSION: There is no mammographic evidence of malignancy. BI-RADS 1: NEGATIVE. RECOMMEND ANNUAL MAMMOGRAPHIC SCREENING. Follow-up code: Routine Follow-up The patient will be notified of the results by letter. Reading Location: [id number]
== END | disposition home or self-care (01) ==
LOC: OPBI 10:21
PROVIDERS: PCP Family Medicine; Referring Provider Family Medicine; Visit Provider Family Medicine
DX: Z12.31 Encounter for screening mammogram for malignant neoplasm of breast (principal); Z80.3 Family history of malignant neoplasm of breast
CPT/HCPCS: 77063; 77067

== ENCOUNTER → 2025-01-05 | Outpatient (CLI) | payer MEDICARE, SELFPAY ==
--- OUTSIDE RECORDS SUMMARY | 2025-01-05 07:18 | XMS RPT_ITS | CCD ---
Author Organization [facility] Care Team Providers Care Cheese Packer Name Role Phone Dr. Jessika Pink Primary Care Provider [phone] Dr. Harris Loo Attending Provider Dr. Jessika Pink Referring Provider Dr. Darrick Domínguez Attending Provider Dr. Jessika Pink Primary Care Provider Dr. Jessika Pink Referring Provider BENY Adams Attending Provider Bhumi Adams Attending Unavail able Raúlys, Jessika Primary Care Unavailable Bhumi Adams Referring Unavail able Boston Wilcox Referring Unavailable Boston Wilcox Attending Unavailable Malys, Jessika Primary Care Unavailable Bhumi Adams Attending Unavail able Raúlys, Jessika Primary Care Unavailable Bhumi Adams Referring Unavail able Malys, Jessika Primary Care Unavailable Malys, Jessika Referring Unavailable Malys, Jessika Attending Unavailable Forrest Burrows Attending Unavailable Malys, Jessika Primary Care Unavailable Bhumi Adams Referring Unavail able Malys, Jessika Primary Care Unavailable Bhumi Adams Attending Unavail able Malys, Jessika Referring Unavailable Malys, Jessika Primary Care Unavailable Bhumi Adams Attending Unavail able Bhumi Adams Referring Unavail able Dr. Jessika Pink DO Primary Care Provider [phone] Dr. Boston Wilcox MD Attending Provider [phone] Jeri TORRE, Dr. Mead Referring Provider [phone] Bhumi Adams Attending Provider Bhumi Adams Referring Provider Dr. Jessika Pink DO Referring Provider Dr. Forrest Burrows MD Attending Provider Dr. Jessika Pink DO Attending Provider Medications Current Medications Medication Drug Class(es) Dates Sig (Normalized) Sig (Original) aspirin 81 mg delayed release oral tablet (8 sources) Platelet Aggregation Inhibitor, Nonsteroidal Anti-inflammatory Drug Start: 10-18-2018 take 1 tablet by mouth once daily Aspirin 81 mg tablet,delayed release (DR/EC) Active 81 mg PO DAILY October 18, 2018 12:00am levothyroxine sodium 0.1 mg oral tablet (8 sources) l-Thyroxine Start: 10-12-2018 take 1 tablet by mouth once daily Levothyroxine 100 mcg tablet Active 100 ug PO DAILY October 12, 2018 12:00am omeprazole 40 mg delayed release oral capsule (8 sources) Proton Pump Inhibitor Start: 10-12-2018 take 1 capsule by mouth once daily Omeprazole 40 mg capsule,delayed release(DR/EC) Active 40 mg PO DAILY October 12, 2018 12:00am SUMAtriptan 50 mg oral tablet (13 sources) Serotonin-1b and Serotonin-1d Receptor Agonist Start: 10-12-2018 End: 05-26-2022 take 1 tablet by mouth once as needed for headache Sumatriptan Succinate 50 mg tablet Active 50 mg PO ONCE as needed for migraine headache May 26, 2022 11:00am Completed/Discontinued Medications Medication Drug Class(es) Dates Sig (Normalized) Sig (Original) atorvastatin 80 mg oral tablet (20 sources) HMG-CoA Reductase Inhibitor Start: 10-18-2018 End: 07-12-2023 take 1 tablet by mouth at bedtime Atorvastatin 80 mg tablet Discontinued 80 mg PO AT BEDTIME July 29, 2022 5:16pm July 12, 2023 11:19am risedronate sodium 35 mg oral tablet (8 sources) Start: 10-12-2018 End: 05-22-2020 take 1 tablet by mouth every week Risedronate 35 mg tablet Discontinued 35 mg PO EVERY WEEK October 12, 2018 12:00am May 22, 2020 12:32pm simvastatin 20 mg oral tablet (8 sources) HMG-CoA Reductase Inhibitor Start: 10-12-2018 End: 10-18-2018 take 1 tablet by mouth at bedtime Simvastatin 20 mg tablet Discontinued 20 mg PO AT BEDTIME October 12, 2018 12:00am October 18, 2018 12:05pm Problems Active Problems Problem Classification Problem Date Documented Da te Episodic/Chronic Coronary atherosclerosis and other heart disease (8 sources) Coronary atherosclerosis; Translations: [Atherosclerotic heart disease of [place] coronary artery without angina pectoris] 05-22-2019 Chronic Disorders of lipid metabolism (13 sources) Dyslipidemia; Translations: [Hyperlipidemia, unspecified] Onset: 07-24-2024 05-22-2019 Chronic Other circulatory disease (1 source) Other specified symptoms and signs involving the circulatory and respiratory systems; Translations: [Other specified symptoms and signs involving the circulatory and respiratory systems] Onset: 08-11-2024 Episodic Other circulatory disease (2 sources) Carotid bruit; Translations: [Other specified symptoms and signs involving the circulatory and respiratory systems] 07-04-2024 Episodic Other ear and sense organ disorders (1 source) Tinnitus, right ear; Translations: [Tinnitus, right ear] Onset: 06-29-2024 Episodic Other screening for suspected conditions (not mental disorders or infectious disease) (13 sources) Calcification of coronary artery; Translations: [Abnormal findings on diagnostic imaging of heart and coronary circulation] Onset: 08-24-2024 05-22-2019 Episodic Past or Other Problems Problem Classification Problem Date Documented Date Episodic/Chronic Residual codes; unclassified (8 sources) History of cardiac catheterization; Translations: [Other specified postprocedural states] Onset: 12-19-2018 05-22-2019 Episodic Results Test Name Value Interpretation Reference Range Facility Breast imaging reportOrdered By: Mojgan Zhou on 08-11-2024 Study report [facility] Imaging Services [address] [place] [id number] SCRN MAMM (CAD)Pranav/RADHA GONZALEZ MR#: [id number] Acct: [id number] Name: YULISA POLANCO Rep #: [id number] : 1955 F 68 From: Noreen Zhou MD PCP: Dr. Jessika Pink, DO Status: REG CLI Study:SCRN MAMM (CAD)W/RADHA BILAT Date of Exa m: 08/11/24 Exam# [id number] Ordering Dr: Snow Pink sa, DO PROCEDURE: SCRN MAMM (CAD)W/RADHA BILAT REASON FOR EXAM: F, Age 68 y/o, presents for annual screening mammogram. Family history of breast cancer in her mother at 64. TECHNIQUE: Bilateral screening digital breast tomosynthesis with 2D and 3D images. Computeraided detection. COMPARISON: 08/10/2023, 07/17/2022 FINDINGS: There are scattered areas of fibroglandular density. No suspicious masses, areas of developing architectural distortion, or suspicious calcifications. BI/SCRN MAMM (CAD)W/RADHA BILAT IMPRESSION: There is no mammographic evidence of malignancy. BI-RADS 1: NEGATIVE. RECOMMEND ANNUAL MAMMOGRAPHIC SCREENING. Follow-up code: Routine Follow-up The patient will be notified of the results by letter. Reading Location: [facility] CC: Dr. Jessika Pink DO ~ Wool Spotter: Signed [facility] SCRN MAMM (CAD)W/RADHA BILATo n 08-11-2024 SCRN MAMM (CAD)W/RADHA BILAT [facility] Imaging Services [address] [place], [place] [address] SCRN MAMM (CAD)W/RADHA BILAT MR#: [id number] Acct: [id number] Name: YULISA POLANCO Rep #: [id number] : 1955 F 68 From: Mojgan Zhou MD PCP: Dr. Jessika Pink DO Status: REG CLI Study: SCRN MAMM (CAD)W/RADHA BILAT Date of Exam: 07/16 02/05 Exam# [id number] Ordering Dr: Jessika Pink DO PROCEDURE: SCRN MAMM (CAD)W/RADHA BILAT REASON FOR EXAM: F, Age 68 y/o, presents for annual screening mammogram. Family history of breast cancer in her mother at 64. TECHNIQUE: Bilateral screening digital breast tomosynthesis with 2D and 3D images. Computer aided detection. COMPARISON: 08/10/2023, 07/17/2022 FINDINGS: There are scattered areas of fibroglandular density. No suspicious masses, areas of developing architectural distortion, or suspicious calcifications. BI/SCRN MAMM (CAD)W/RADHA BILAT IMPRESSION: There is no mammographic evidence of malignancy. BI-RADS 1: NEGATIVE. RECOMMEND ANNUAL MAMMOGRAPHIC SCREENING. Follow-up code: Routine Follow-up The patient will be notified of the results by letter. Reading Location: [facility] CC: Dr. Jessika Pink DO Wool Spotter: Signed Normal [facility] Carotid Duplex Ultrasoundon 07-28-2024 Carotid Duplex Ultrasound [facility] [address] [place] [address] Carotid Duplex Ultrasound 07/28/24 0859 MR#: [id number] Acct: [id number] Name: YULISA POLANCO Rep #: [id number] : 1955 68 From: Forrest Burrows MD Attending Dr: BENY Rivers Status: REG CLI Ordering Dr: Bhumi Haro PA Date: 07/15 10/06 Location: [facility] Sex: F C Admitted: Reason For Study Reason For Study: BLE Carotid Bruit Rt. Velocities/BP Lt. Velocities/BP Prox CCA 65.8/15.7 cm/sec. Prox CCA 125.3/23.0 cm/sec. Mid CCA 74.3/22.3 cm/sec. Mid CCA 83.0/21.6 cm/sec. Dist CCA 103.9/30.2 cm/sec. Dist CCA 80.9/23.7 cm/sec. Prox ICA 57.2/15.7 cm/sec. Prox ICA 73.2/26.5 cm/sec. Mid ICA 83.3/24.8 cm/sec. Mid ICA 91.6/37.6 cm/sec. Dist ICA 108.9/32.1 cm/sec. Dist ICA 62.5/18.8 cm/sec. Rt. ICA/CCA = 1.5. Lt. ICA/CCA = 1.1. Prox ECA 135.2/16.7 cm/sec. Prox ECA 128.6/23.3 cm/sec. Rt. Vert. 66.7/18.5 cm/sec. Lt. Vert. 44.1/12.7 cm/sec. Right Extracranial There is heterogeneous, irregular atherosclerotic plaque noted in the right common carotid artery. There is heterogeneous, irregular atherosclerotic plaque noted in the right internal carotid artery. There is intimal thickening but no significant atherosclerotic plaque noted in the right external carotid artery. Antegrade flow is noted in the right vertebral artery. Left Extracranial There is intimal thickening but no significant atherosclerotic plaque noted in the left common carotid artery. There is intimal thickening but no significant atherosclerotic plaque noted in the left internal carotid artery. There is intimal thickening but no significant atherosclerotic plaque noted in the left external carotid artery. Antegrade flow is noted in the left vertebral artery. Procedure Carotid Duplex 15510. This is a Carotid Duplex examination using B-mode, color flow and specral Doppler. The exam was diagnostic. Exam performed in department. VL/Carotid Duplex Ultrasound Interpretation Summary Mild (<50%) stenosis right extracranial internal carotid. Normal left extracranial internal carotid. Patent and antegrade vertebrals bilaterally. Ordering Physician: Bhumi Haro Referring Physician: Jessika Pink Performed By: Domenico Root, T 07/31/24 1051 Date Forrest Burrows MD CC: Dr. Jessika Pink DO; BENY Rivers Date Dictated: 07/28/24 0859 Date Transcribed: 07/31/24 1051 Wool Spotter: Signed Normal [facility] Cardiology Visit Reporton Cardiology Visit Report [facility] [address] [place] [address] OFFICE VISIT Date of Service: 07/04/24 MR#: [id number] Acct: [id number] Name: YULISA POLANCO Rep #: [id number] : 1955 Provider: BENY Diane Age/Sex: 68/F [place] [facility] Status: Signed HPI HPI History of Present Illness Details: Yulisa Polanco is a 68 year old female who presents here today for a cardiovascular follow-up. She has a history of premature coronary artery disease after having an elevated calcium score on routine screening. Patient is noted to have moderate disease per heart catheterization that was done in 2019. It was recommended that she since she was not symptomatic that we treat medically. From a cardiac standpoint, patient is doing well. She does not have any chest discomfort/heaviness/t ightness. Her exercise tolerance is stable for her age. She walks daily. She does not have any worsening symptoms of shortness of breath. She does not have any orthopnea. She denies PND. She does not have any symptoms of congestive heart failure. She does not have any palpitations that she is aware of. She does not have any lightheadedness or dizziness. She does not have any near-syncope or syncope. She does not have any lower extremity edema. She does not have any symptoms of claudication. Intake Vital Signs 07/12/23 09:56 07/04/24 08:58 Height 5 ft 5 in 5 ft 5 in Weight: 178 lb BMI 29.6 BP 125/79 H Blood Pressure Location Lt brachial Position Sitting Respiration 18 Pulse 82 Pulse Source Monitor Pulse Oximetry (%) 95 Oxygen Delivery Method room air Intake Visit Reasons: 1 Y FU Dermatological Surgeon Required: No Accompanied by: Self Is patient in pain?: No Allergies No Known Allergies Allergy (Verified 07/04/24 08:58) Medications ???Medication ???Instructions ???Recorded ???Confirmed ???Type levothyroxine 100 mcg tablet 100 mcg PO DAILY 10/12/18 07/04/24 History omeprazole 40 mg capsule,delayed 40 mg PO DAILY 10/12/18 07/04/24 History release aspirin 81 mg tablet,delayed 81 mg PO DAILY #30 tabs 10/18/18 07/04/24 Rx release sumatriptan succinate 50 mg tablet 50 mg PO ONCE PRN migraine headache 05/26/22 07/04/24 History atorvastatin 80 mg tablet 80 mg PO QHS #90 tabs 07/12/23 07/04/24 Rx Have you fallen in the past year?: No PFSH Medical History Atherosclerosis of coronary artery of [place] heart without angina pectoris Elevated coronary artery calcium score Hiatal hernia GERD (gastroesophageal reflux disease) Hypothyroidism Surgical History Hx of cataract surgery History of left heart catheterization (12/19/18) Family History Mother Cancer breast cancer Father , Age 51 Myocardial infarction Social History Smoking Status: Never smoker alcohol intake: never substance use type: does not use caffeine: No what type of physical activity do you participate in: walking ROS Const Const: Negative for fatigue or weakness ENT ENT: Positive for tinnitus (seen ENT, needs hearing aid for white noise); Negative for dizziness or balance problems Cardio Chest Pain: No Palpitations: No Edema: None Muscle aches with walking: None Resp Respiratory: Negative for SOB with activity, SOB at rest or SOB orthopnea SOB lying down GI GI: Negative nausea, vomiting or heartburn Musc Musc: Negative for muscle weakness or balance problems Neuro Neuro: Negative for dizziness, lightheadedness, near syncope, syncope or weakness Endo Endo: Negative for fatigue Cardiology Exam Const Appearance: cooperative, healthy appearing, comfortable, no acute distress and well developed Orientation: alert, awake and oriented x3 Head Head: normal to inspection Ears: hearing grossly normal bilaterally Nose: external nose normal Face and Sinus: face symmetric Mouth: oral mucosae normal, lip normal and moist mucous membranes Eyes General: appearance normal, both eyes and all related structures Eyelids: eyelids normal Conjunctivae: conjunctivae normal Pupils: PERRL EOM: EOM intact bilaterally Neck Neck: normal visual inspection and trachea midline; Negative no JVD Carotids: Negative bruit Chest Chest inspection: normal inspection of the chest Auscultation: Bilateral: Clear to Auscultation Cardio Palpation: normal PMI Rate: regular rate Rhythm: regular rhythm Heart sounds: S1 normal and S2 normal; Negative rub, gallop or murmur GI GI: soft, no hepatosplenomegaly and bowel sounds present Neuro General: patient alert, patient awake, patient oriented x3 and CN's (more content not included)... Normal [facility] Bilirubin directOrdered By: Bhumi Haro on 06-29-2024 Bilirubin.direct [Mass/Vol] 0.13 mg/dL 0.00-0.30 [facility] Bilirubin, totalOrdered By: Bhumi Haro on 06-29-2024 Bilirubin [Mass/Vol] 0.40 mg/dL 0.20-1.00 [facility] Comment on above: For patients on eltr ombopag therapy, use of Dimension [place] TBIL is not recommended. High density lipoprotein (HD L) measurementOrdered By: Bhumi Haro on 06-29-2024 Cholesterol in HDL [Mass/Vol] 59 mg/dL >40 [facility] Comment on above: The drugs N-Acetylcy steine and Metamizole may falsely depress this assay. Reference Range HDL <40 mg/dL Low HDL Cholesterol HDL >or= 60 mg/dL High HDL Cholesterol Laboratory - Chemistry and C hemistry - challengeOrdered By: Bhumi Haro on 06-29-2024 AST [Catalytic activity/Vol] 29 U/L 15-37 [facility] Lipid Profileon 06-29-2024 Cholesterol [Mass/Vol] 141 mg/dL Normal 200 [facility] [place] Comment on above: Result Comment: <200 mg/dL Desirable 200-240 mg/dL Borderline >240 mg/dL High Risk Performed By: #### L 500.3123, L500.0165 #### [facility] [address] [place], [place], [id number] Cholesterol in HDL [Mass/Vol] 59 mg/dL Normal [facility] Comment on above: Result Comment: The drugs N-Acetylcysteine and Metamizole may falsely depress this assay. Reference Range HDL <40 mg/dL Low HDL Cholesterol HDL >or= 60 mg/dL High HDL Cholesterol Performed By: #### L 500.4100, L500.3400 #### [facility] [address] [place], [address] Cholesterol in LDL [Mass/Vol] 64 mg/dL Normal 0-130 [facility] Comment on above: Performed By: #### L 500.4100, L500.3400 #### [facility] [address] [place], [address] Cholesterol in VLDL [Mass/Vol] 18 mg/dL Normal 5-40 [facility] Comment on above: Performed By: #### L 500.4100, L500.3400 #### [facility] [address] [place], [address] Triglyceride [Mass/Vol] 92 mg/dL Normal [facility] Comment on above: Result Comment: The drugs N-Acetylcysteine and Metamizole may falsely depress this assay. Serum Triglycerides Reference Interval Normal <150 mg/dL Borderline high 150 - 199 mg/dL High 200 - 499 mg/dL Very High > or = 500 mg/dL Performed By: #### L 500.4100, L500.3400 #### [facility] [address] [place], [address] Liver Profileon 06-29-2024 Albumin [Mass/Vol] 3.3 g/dL Normal 3.2-5.0 [facility] Comment on above: Performed By: #### L 500.4100, L500.3400 #### [facility] [address] [place], [address] ALK P 110 U/L Normal 45-117 [facility] Comment on above: Performed By: #### L 500.4100, L500.3400 #### [facility] [address] [place], [address] ALT [Catalytic activity/Vol] 47 U/L Normal 13-56 [facility] Comment on above: Performed By: #### L 500.4100, L500.3400 #### [facility] [address] [place], [address] AST [Catalytic activity/Vol] 29 U/L Normal 15-37 [facility] Comment on above: Performed By: #### L 500.4100, L500.3400 #### [facility] [address] [place], [address] Bilirubin [Mass/Vol] 0.40 mg/dL Normal 0.20-1.00 [facility] Comment on above: Result Comment: For patients on eltrombopag therapy, use of Dimension [place] TBIL is not recommended. Performed By: #### L 500.4100, L500.3400 #### [facility] [address] [place], [address] Bilirubin.direct [Mass/Vol] 0.13 mg/dL Normal 0.00-0.30 [facility] Comment on above: Performed By: #### L 500.4100, L500.3400 #### [facility] [address] [place], [address] Globulin (S) [Mass/Vol] 3.6 g/dL Normal 2.2-4.2 [facility] Comment on above: Performed By: #### L 500.4100, L500.3400 #### [facility] [address] [place], [address] T PROT 6.9 g/dL Normal 6.4-8.2 [facility] Comment on above: Performed By: #### L 500.4100, L500.3400 #### [facility] [address] [place], [address] Low density lipoprotein (LDL ) cholesterol measurementOrdered By: Bhumi Haro on 06-29-2024 Cholesterol in LDL [Mass/Vol] 64 mg/dL 0-130 [facility] Serum globulin measurementOr dered By: Bhumi Haro on 06-29-2024 Globulin (S) [Mass/Vol] 3.6 g/dL 2.2-4.2 [facility] Serum or plasma alanine lopez otransferase (ALT) measurementOrdered By: Bhumi Haro on 06-29-2024 ALT [Catalytic activity/Vol] 47 U/L 13-56 [facility] Serum or plasma albumin pasha urement (mass/volume)Ordered By: Bhumi Haro on 06-29-2024 Albumin [Mass/Vol] 3.3 g/dL 3.2-5.0 [facility] Serum or plasma alkaline benjamin sphatase measurementOrdered By: Bhumi Haro on 06-29-2024 ALP [Catalytic activity/Vol] 110 U/L 45-117 [facility] Serum or plasma cholesterol measurement (mass/volume)Ordered By: Bhumi Haro on 06-29-2024 Cholesterol [Mass/Vol] 141 mg/dL <200 [facility] Comment on above: <200 mg/dL Desirable 200-240 mg/dL Borderline >240 mg/dL High Risk Total proteinOrdered By: Daryn Haro on 06-29-2024 Protein [Mass/Vol] 6.9 g/dL 6.4-8.2 [facility] Triglycerides measurementOrd ered By: Bhumi Haro on 06-29-2024 Triglyceride [Mass/Vol] 92 mg/dL <199 [facility] Comment on above: The drugs N-Acetylcy steine and Metamizole may falsely depress this assay.Serum Triglycerides Reference Interval Normal <150 mg/dL Borderline high 150 - 199 mg/dL High 200 - 499 mg/dL Very High > or = 500 mg/dL Very low density lipoprotein (VLDL) cholesterol measurementOrdered By: Bhumi Haro on 06-29-2024 VLDL Cholesterol 18 mg/dL 5-40 [facility] Brain W/WO Contraston 2023 Brain W/WO Contrast [facility] Imaging Services [address] [place] [address] Brain W/WO Contrast MR#: [id number] Acct: [id number] Name: YULISA POLANCO Rep #: [id number] : 1955 F 68 From: Quan Armijo MD PCP: Dr. Jessika Pink, DO Status: REG CLI Study: Brain W/WO Contrast Date of Exam: 05/26/24 Exam# [id number] Ordering Dr: Boston Wilcox MD [id number] STUDY: MRI BRAIN WITH AND WITHOUT CONTRAST (ATTENTION INTERNAL AUDITORY CANALS - I.A.C.''s) REASON FOR EXAM: Female, 68 years old. RIGHT TINNITUS, bilat hearing loss TECHNIQUE: Standardized multiplanar fat and water weighted pulse sequences were obtained. IV CLARISCAN 15ML was administered for the contrast portion of the examination. COMPARISON: None. FINDINGS: Normal bilateral temporal bones. Normal bilateral internal auditory canals. There is no demonstrated intracanalicular or cisternal vestibular schwannoma (acoustic neuroma). There is no enhancement of the bilateral VIIth or VIIIth cranial nerves. Normal bilateral cochlea, vestibules and semicircular canals. There is mild cerebral atrophy with widening of the extra-axial spaces and ventricular dilatation. There are a limited number of small white matter hyperintensities, distributed throughout the deep white matter tracts of the cerebral hemispheres, consistent with mild chronic white matter ischemic changes. There is no evidence for recent intracranial ischemia or other cause of cytotoxic edema on diffusion weighted imaging (DWI). Normal bilateral basal ganglia. Normal thalami. Normal flow voids within the major intracranial circulation suggesting patency by spin echo criteria. Normal venous enhancement. There is no enhancing intra-axial or extra-axial abnormality. There is no extra-axial fluid accumulation. Normal sella turcica, pituitary gland, infundibular stalk, optic chiasm and hypothalamus. Normal tectal plate and pineal gland. Normal midbrain, antione and medulla. Normal cerebellum. Normal basal cisterns. There is an ocular lens implant the left globe. Normal right globe. The intraorbital contents otherwise are normal. Normal visualized paranasal sinuses. Normal calvarium and skull base. Normal visualized soft tissue structures. Normal visualized upper cervical spine. MRI/Brain W/WO Contrast IMPRESSION: Involutional changes of the brain, as described above. No MR evidence of vestibular schwannoma (acoustic neuroma). Electronically Signed: Quan Armijo MD at 9:41 EST , CC: Dr. Boston Wilcox MD; Dr. Jessika Pink DO Wool Spotter: Signed Normal [facility] CREATININE FINGERSTICKon CREATININE WB < 1.0 Normal 0.55-1.02 [facility] Comment on above: Performed By: #### L 9100.0200 #### [facility] [address] [place], [place], [id number] EGFR WB > 60.0000 Normal >60 [facility] Comment on above: Performed By: #### L 9100.0200 #### [facility] [address] [place], [place], [id number] Creatinine measurement at be dsideOrdered By: Boston Wilcox on 05-26-2024 Bedside Creatinine < 1.0 mg/dL 0.55-1.02 [facility] EGFROrdered By: Boston Wilcox on 05-26-2024 Bedside Estimated GFR (eGFR) > 60.0000 mL/min >60 [facility] Lipid Profileon 12-28-2023 Cholesterol [Mass/Vol] 160 mg/dL Normal 200 [facility] [place] Comment on above: Result Comment: <200 mg/dL Desirable 200-240 mg/dL Borderline >240 mg/dL High Risk Performed By: #### L 500.4100, L500.3400 #### [facility] [address] [place], [place], [id number] Cholesterol in HDL [Mass/Vol] 57 mg/dL Normal [facility] Comment on above: Result Comment: The drugs N-Acetylcysteine and Metamizole may falsely depress this assay. Reference Range HDL <40 mg/dL Low HDL Cholesterol HDL >or= 60 mg/dL High HDL Cholesterol Performed By: #### L 500.4100, L500.3400 #### [facility] [address] [place], [address] Cholesterol in LDL [Mass/Vol] 76 mg/dL Normal 0-130 [facility] Comment on above: Performed By: #### L 500.4100, L500.3400 #### [facility] [address] [place], [address] Cholesterol in VLDL [Mass/Vol] 27 mg/dL Normal 5-40 [facility] Comment on above: Performed By: #### L 500.4100, L500.3400 #### [facility] [address] [place], [address] Triglyceride [Mass/Vol] 136 mg/dL Normal [facility] Comment on above: Result Comment: The drugs N-Acetylcysteine and Metamizole may falsely depress this assay. Serum Triglycerides Reference Interval Normal <150 mg/dL Borderline high 150 - 199 mg/dL High 200 - 499 mg/dL Very High > or = 500 mg/dL Performed By: #### L 500.4100, L500.3400 #### [facility] [address] [place], [address] Liver Profileon 12-28-2023 Albumin [Mass/Vol] 3.3 g/dL Normal 3.2-5.0 [facility] Comment on above: Performed By: #### L 500.4100, L500.3400 #### [facility] [address] [place], [address] ALK P 110 U/L Normal 45-117 [facility] Comment on above: Performed By: #### L 500.4100, L500.3400 #### [facility] [address] [place], [address] ALT [Catalytic activity/Vol] 58 U/L High 13-56 [facility] Comment on above: Performed By: #### L 500.4100, L500.3400 #### [facility] [address] [place], [address] AST [Catalytic activity/Vol] 39 U/L High 15-37 [facility] Comment on above: Performed By: #### L 500.4100, L500.3400 #### [facility] [address] [place], [address] Bilirubin [Mass/Vol] 0.40 mg/dL Normal 0.20-1.00 [facility] Comment on above: Result Comment: For patients on eltrombopag therapy, use of Dimension [place] TBIL is not recommended. Performed By: #### L 500.4100, L500.3400 #### [facility] [address] [place], [address] Bilirubin.direct [Mass/Vol] 0.10 mg/dL Normal 0.00-0.30 [facility] Comment on above: Performed By: #### L 500.4100, L500.3400 #### [facility] [address] [place], [address] Globulin (S) [Mass/Vol] 3.8 g/dL Normal 2.2-4.2 [facility] Comment on above: Performed By: #### L 500.4100, L500.3400 #### [facility] [address] [place], [address] T PROT 7.1 g/dL Normal 6.4-8.2 [facility] Comment on above: Performed By: #### L 500.4100, L500.3400 #### [facility] [address] [place], [address] Absolute lymphocyte countOrd ered By: Jessika Pink on 08-10-2023 Lymphocytes Auto (Unsp spec) [#/Vol] 1.42 10*3/uL 0.83-4.51 [facility] Automated lymphocyte count a s percentage of total leukocytesOrdered By: Jessika Pink on 08-10-2023 Lymphocytes/100 WBC Auto (Unsp spec) 26.2 % 19-41 [facility] Basophil percentageOrdered B y: Jessika Pink on 08-10-2023 Basophils/100 WBC (Bld) 0.2 % 0-1 [facility] Bilirubin [Mass/Vol] 0.40 mg/dL 0.20-1.00 [facility] Comment on above: For patients on eltr ombopag therapy, use of Dimension [place] TBIL is not recommended. Chloride [Moles/Vol] 110 mmol/L 98-107 [facility] Eosinophils/100 WBC (Bld) 1.8 % 0-5 [facility] Glucose [Mass/Vol] 94 mg/dL 74-106 [facility] Hemoglobin (Bld) [Mass/Vol] 13.3 g/dL 12.0-15.0 [facility] Monocytes/100 WBC (Bld) 8.1 % 0-10 [facility] Neutrophils (Bld) [#/Vol] 3.4 10*3/uL 2.0-7.7 [facility] Neutrophils/100 WBC (Bld) 63.5 % 47-70 [facility] Potassium [Moles/Vol] 4.3 mmol/L 3.5-5.1 [facility] Protein [Mass/Vol] 6.9 g/dL 6.4-8.2 [facility] Sodium [Moles/Vol] 140 mmol/L 136-145 [facility] WBC (Bld) [#/Vol] 5.4 10*3/uL 4.4-11.0 [facility] Determination of erythrocyte mean corpuscular volume (MCV)Ordered By: Jessika Pink on 08-10-2023 MCV (RBC) [Entitic vol] 87.8 fL 81-99 [facility] Erythrocyte distribution wid th ratioOrdered By: Jessika Pink on 08-10-2023 Erythrocyte distribution width (RBC) [Ratio] 13.8 % 11.6-14.6 [facility] Erythrocyte distribution wid th standard deviationOrdered By: Jessika Pink on 08-10-2023 Erythrocyte distribution width (RBC) [Entitic vol] 44.4 fL 35.1-43.9 [facility] Hematocrit Auto (Bld) [Volum e fraction]Ordered By: Jessika Pink on 08-10-2023 Hematocrit (Bld) [Volume fraction] 42.5 % 37-47 [facility] Immature granulocytes/100 WB C Auto (Bld)Ordered By: Jessika Pink on 08-10-2023 Immature granulocytes/100 WBC (Bld) 0.200 % 0.0-0.9 [facility] Comment on above: IG% - Immature Granu locytes (promyelocytes, myelocytes and metamyelocytes) > 1% indicates that a LEFT SHIFT is Present. Laboratory - Chemistry and C hemistry - challengeOrdered By: Jessika Pink on 08-10-2023 Albumin/Globulin [Mass ratio] 0.9 {ratio} 0.9-2.4 [facility] ALP [Catalytic activity/Vol] 106 U/L 45-117 [facility] ALT [Catalytic activity/Vol] 60 U/L 13-56 [facility] CO2 [Moles/Vol] 26.0 mmol/L 21.0-32.0 [facility] Globulin (S) [Mass/Vol] 3.6 g/dL 2.2-4.2 [facility] Urea nitrogen/Creatinine [Mass ratio] 25.2 mg/mg 10-20 [facility] - Hematology and Cell countsOrdered By: Jessika Pink on 08-10-2023 MCH (RBC) [Entitic mass] 27.5 pg 27.0-32.0 [facility] MCHC (RBC) [Mass/Vol] 31.3 g/dL 32-36 [facility] Nucleated RBC/100 WBC (Bld) [Ratio] 0 % 0-5 [facility] Platelet mean volume (Bld) [Entitic vol] 12.0 fL 6.2-12.0 [facility] Platelets (Bld) [#/Vol] 216 10*3/uL 150-450 [facility] No Panel InformationOrdered By: Jessika Pink on 08-10-2023 Estimated GFR (MDRD) Amer 92 mL/min >60 [facility] Comment on above: GFR Calc Estimated GFR (MDRD) Non-Af Amer 76 mL/min >60 [facility] Comment on above: Non- GFR Calc Free Triiodothyronine (T3) pg/dL 2.7 pg/mL 2.18-3.98 [facility] RBC Auto (Bld) [#/Vol]Ordere d By: Jessika Pink on 08-10-2023 RBC (Bld) [#/Vol] 4.84 10*6/uL 4.2-5.4 [facility] Serum or plasma calcium pasha urement (mass/volume)Ordered By: Jessika Pink on 08-10-2023 Calcium [Mass/Vol] 9.7 mg/dL 8.5-10.1 [facility] Serum or plasma creatinine m easurement (mass/volume)Ordered By: Jessika Pink on 08-10-2023 Creatinine [Mass/Vol] 0.79 mg/dL 0.55-1.02 [facility] Comment on above: The validity of the calculated GFR & GFRAA in patients over 70 years has not been determined. Clinical correlation is essential. Serum or plasma thyroid stim ulating hormone (TSH) measurement (units/volume)Ordered By: Jessika Pink on 08-10-2023 TSH Qn 1.08 uIU/mL 0.358-3.74 [facility] Serum or plasma urea nitroge n measurement (mass/volume)Ordered By: Jessika Pink on 08-10-2023 Urea nitrogen [Mass/Vol] 20 mg/dL 7-18 [facility] Thin prep Papanicolaou smear with manual screeningOrdered By: Jessika Pink on 08-10-2023 Thin prep Papanicolaou smear with manual screening 3.3 g/dL 3.2-5.0 [facility] Thin prep Papanicolaou smear with manual screening 37 U/L 15-37 [facility] Thin prep Papanicolaou smear with manual screening 4 5-15 [facility] Thin prep Papanicolaou smear with manual screening 1.31 ng/dL 0.76-1.46 [facility] Basophil percentageOrdered B y: Bhumi Haro on 05-21-2023 Bilirubin [Mass/Vol] 0.40 mg/dL 0.20-1.00 [facility] Comment on above: For patients on eltr ombopag therapy, use of Dimension [place] TBIL is not recommended. Cholesterol [Mass/Vol] 160 mg/dL <200 [facility] [place] Comment on above: <200 mg/dL Desirable 200-240 mg/dL Borderline >240 mg/dL High Risk Protein [Mass/Vol] 7.1 g/dL 6.4-8.2 [facility] Triglyceride [Mass/Vol] 76 mg/dL <199 [facility] Comment on above: The drugs N-Acetylcy steine and Metamizole may falsely depress this assay.Serum Triglycerides Reference Interval Normal <150 mg/dL Borderline high 150 - 199 mg/dL High 200 - 499 mg/dL Very High > or = 500 mg/dL Direct bilirubinOrdered By: Bhumi Haro on 05-21-2023 Bilirubin.direct [Mass/Vol] 0.09 mg/dL 0.00-0.30 [facility] - Chemistry and C hemistry - challengeOrdered By: Bhumi Haro on 05-21-2023 ALP [Catalytic activity/Vol] 112 U/L 45-117 [facility] ALT [Catalytic activity/Vol] 78 U/L 13-56 [facility] Globulin (S) [Mass/Vol] 3.8 g/dL 2.2-4.2 [facility] Serum or plasma albumin pasha urement (mass/volume)Ordered By: Bhumi Haro on 05-21-2023 Albumin [Mass/Vol] 3.3 g/dL 3.2-5.0 [facility] Serum or plasma cholesterol in HDL measurement (mass/volume)Ordered By: Bhumi Haro on 05-21-2023 Cholesterol in HDL [Mass/Vol] 58 mg/dL >40 [facility] Comment on above: The drugs N-Acetylcy steine and Metamizole may falsely depress this assay. Reference Range HDL <40 mg/dL Low HDL Cholesterol HDL >or= 60 mg/dL High HDL Cholesterol Serum or plasma cholesterol in VLDL measurement (mass/volume)Ordered By: Bhumi Haro on 05-21-2023 Cholesterol in VLDL [Mass/Vol] 15 mg/dL 5-40 [facility] Serum or plasma low density lipoprotein (LDL) cholesterol measurement (mass/volume)Ordered By: Bhumi Haro on 05-21-2023 Cholesterol in LDL [Mass/Vol] 87 mg/dL 0-130 [facility] Thin prep Papanicolaou smear with manual screeningOrdered By: Bhumi Haro on 05-21-2023 Thin prep Papanicolaou smear with manual screening 46 U/L 15-37 [facility] Basophil percentageOrdered B y: Dr. Domínguez on 05-16-2022 Bilirubin [Mass/Vol] 0.40 mg/dL 0.20-1.00 [facility] Comment on above: For patients on eltr ombopag therapy, use of Dimension [place] TBIL is not recommended. Cholesterol [Mass/Vol] 133 mg/dL <200 [facility] [place] Comment on above: <200 mg/dL Desirable 200-240 mg/dL Borderline >240 mg/dL High Risk Protein [Mass/Vol] 6.8 g/dL 6.4-8.2 [facility] Triglyceride [Mass/Vol] 89 mg/dL <199 [facility] Comment on above: The drugs N-Acetylcy steine and Metamizole may falsely depress this assay.Serum Triglycerides Reference Interval Normal <150 mg/dL Borderline high 150 - 199 mg/dL High 200 - 499 mg/dL Very High > or = 500 mg/dL Direct bilirubinOrdered By: Dr. Domínguez on 05-16-2022 Bilirubin.direct [Mass/Vol] 0.09 mg/dL 0.00-0.30 [facility] - Chemistry and C hemistry - challengeOrdered By: Dr. Domínguez on 05-16-2022 ALP [Catalytic activity/Vol] 101 U/L 45-117 [facility] ALT [Catalytic activity/Vol] 65 U/L 13-56 [facility] Globulin (S) [Mass/Vol] 3.6 g/dL 2.2-4.2 [facility] Serum or plasma albumin pasha urement (mass/volume)Ordered By: Dr. Domínguez on 05-16-2022 Albumin [Mass/Vol] 3.2 g/dL 3.2-5.0 [facility] Serum or plasma cholesterol in HDL measurement (mass/volume)Ordered By: Dr. Domínguez on 05-16-2022 Cholesterol in HDL [Mass/Vol] 54 mg/dL >40 [facility] Comment on above: The drugs N-Acetylcy steine and Metamizole may falsely depress this assay. Reference Range HDL <40 mg/dL Low HDL Cholesterol HDL >or= 60 mg/dL High HDL Cholesterol Serum or plasma cholesterol in VLDL measurement (mass/volume)Ordered By: Dr. Domínguez on 05-16-2022 Cholesterol in VLDL [Mass/Vol] 18 mg/dL 5-40 [facility] Serum or plasma low density lipoprotein (LDL) cholesterol measurement (mass/volume)Ordered By: Dr. Domínguez on 05-16-2022 Cholesterol in LDL [Mass/Vol] 61 mg/dL 0-130 [facility] Thin prep Papanicolaou smear with manual screeningOrdered By: Dr. Domínguez on 05-16-2022 Thin prep Papanicolaou smear with manual screening 37 U/L 15-37 [facility] Vital Signs Date Time Vital Sign Value Performing Clinician Bubba lewis 07-04-2024 08:58-0500 Body height 165.[address] Jessika Pink DO Work Phone: [facility] 07-04-2024 08:58-0500 Body mass index (BMI) [Ratio] 29.6 kg/m2 Dr. Jessika Pink DO Work Phone: [facility] 07-04-2024 08:58-0500 Body weight 80.[address] Jessika Pink DO Work Phone: [facility] 07-04-2024 08:58-0500 Diastolic blood pressure 79 mm[Hg] Dr. Jessika Pink DO Work Phone: [facility] 07-04-2024 08:58-0500 Heart rate 82 /min Dr. Jessika Pink DO Work Phone: [facility] 07-04-2024 08:58-0500 Respiratory rate 18 /min Dr. Jessika Pink DO Work Phone: [facility] 07-04-2024 08:58-0500 SaO2% (BldA) [Mass fraction] 95 % Dr. Jessika Pink DO Work Phone: [facility] 07-04-2024 08:58-0500 Systolic blood pressure 125 mm[Hg] Dr. Jessika Pink DO Work Phone: [facility] 07-12-2023 09:56-0500 Body height 165.[address] Jessika Pink Work Phone: [facility] 07-12-2023 09:56-0500 Body mass index (BMI) [Ratio] 29.6 kg/m2 Dr. Jessika Pink Work Phone: [facility] 07-12-2023 09:56-0500 Body weight 80.[address] Jessika Pink Work Phone: [facility] 07-12-2023 09:56-0500 Diastolic blood pressure 86 mm[Hg] Dr. Jessika Pink Work Phone: [facility] 07-12-2023 09:56-0500 Heart rate 81 /min Dr. Jessika Pink Work Phone: [facility] 07-12-2023 09:56-0500 Respiratory rate 18 /min Dr. Jessika Pink Work Phone: [facility] 07-12-2023 09:56-0500 SaO2% (BldA) [Mass fraction] 97 % Dr. Jessika Pink Work Phone: [facility] 07-12-2023 09:56-0500 Systolic blood pressure 132 mm[Hg] Dr. Jessika Pink Work Phone: [facility] 05-26-2022 10:04-0500 Body height 165.[address] Jessika Pink Work Phone: [facility] 05-26-2022 10:04-0500 Body mass index (BMI) [Ratio] 29.6 kg/m2 Dr. Jessika Pink Work Phone: [facility] 05-26-2022 10:04-0500 Body weight 80.[address] Jessika Pink Work Phone: [facility] 05-26-2022 10:04-0500 Diastolic blood pressure 86 mm[Hg] Dr. Jessika Pink Work Phone: [facility] 05-26-2022 10:04-0500 Heart rate 84 /min Dr. Jessika Pink Work Phone: [facility] 05-26-2022 10:04-0500 Respiratory rate 16 /min Dr. Jessika Pink Work Phone: [facility] 05-26-2022 10:04-0500 Systolic blood pressure 134 mm[Hg] Dr. Jessika Pink Work Phone: [facility] 07-15-2021 12:03-0500 Body height 165.1 cm [facility] Work Phone: Encounters Encounter Date Encounter Type Care Provider Facility Start: 08-11-2024 End: 08-11-[address] Jessika Pink DO Work Phone: [facility] Work Phone: Start: 08-11-2024 End: 08-11-[address] Jessika Pink DO -Outpatient Breast Imaging Work Phone: Start: 08-11-2024 End: 08-11-2024 ambulatory Jessika Pink Facility:[facility] Start: 07-28-2024 ambulatory Forrest Burrows Facility:[facility] Start: 07-28-2024 Non-patient / Non-visit Dr. Forrest Burrows MD -[facility] Start: 07-28-2024 End: 07-28-2024 Patient encounter procedure Bhumi SWAN -Cardiovascular Services Work Phone: Start: 07-28-2024 End: 07-28-2024 ambulatory Jessika Pink Facility:[facility] Start: 07-04-2024 End: 07-04-2024 Patient encounter procedure Bhumi SWAN -[place] [facility] Work Phone: Start: 07-04-2024 End: 07-04-2024 ambulatory Jessika Pink [place] [place]: 06-29-2024 End: 06-29-2024 Patient encounter procedure Bhumi Haro PA -Laboratory Work Phone: Start: 06-29-2024 End: 06-29-2024 ambulatory Bhumi SWAN Facility:[facility] Start: 05-26-2024 End: 05-26-[address] Boston Wilcox MD -[facility] Work Phone: Start: 05-26-2024 End: 05-26-2024 ambulatory Boston Wilcox Facility:[facility] Start: 12-28-2023 End: 12-28-2023 ambulatory Bhumi SWAN Facility:[facility] Start: 08-10-2023 End: 08-10-[address] Jessika Pink Work Phone: [facility] Work Phone: Start: 08-10-2023 End: 08-10-[address] Jessika Pink Work Phone: [facility] Start: 07-12-2023 End: 07-12-[address] Jessika Pink Work Phone: [facility] [facility] Work Phone: Start: 05-21-2023 End: 05-21-2023 ambulatory [facility] Work Phone: Start: 05-21-2023 End: 05-21-2023 Patient encounter procedure [facility]-Laboratory Work Phone: Start: 07-17-2022 End: 07-17-[address] Jessika Pink Work Phone: [facility] Work Phone: Start: 07-17-2022 End: 07-17-[address] Jessika Pink Work Phone: [facility]-Outpatient Breast Imaging Start: 05-26-2022 End: 05-26-[address] Jessika Pink Work Phone: [facility] Start: 05-16-2022 End: 05-16-[address] Jessika Pink Work Phone: [facility] Work Phone: Start: 05-16-2022 End: 05-16-[address] Jessika Pink Work Phone: [facility]-Laboratory Start: 04-16-[address] Jessika grayson Work Phone: [facility]-Cardiovascular Services Start: 04-16-2022 Non-patient / Non-visit Dr. Jessika Pink Work Phone: [facility] Start: 11-24-2021 End: 11-24-2021 Patient encounter procedure [facility]-Radiology, [place] Start: 11-06-2021 End: 11-06-2021 Discharged Recurring [facility]-Physical Therapy Start: 07-15-2021 End: 07-15-2021 Patient encounter procedure [facility]-Outpatient Bone Densitometry Procedures Date Procedure Procedure Detail Performing Clinician Start: 08-11-2024 Screening mammography Kota Pink DO Work Phone: Start: 05-26-2024 MRI of brain with contrast Dr. Jessika Pink DO Work Phone: Start: 08-10-2023 Dual energy X-ray absorptiometry Dr. Jessika Pink Work Phone: Start: 08-10-2023 Screening mammography Kota Pink Work Phone: Start: 07-17-2022 Screening mammography Kota Pink Work Phone: Start: 11-24-2021 Plain x-ray of pelvi s and lower extremity Start: 07-15-2021 Dual energy X-ray absorptiometry Start: 07-15-2021 Screening mammography Immunizations Immunization Date Immunization Notes Care Provider Ronaldo daly 09-05-2020 Covid (Pfizer) [facility] 08-15-2020 Covid (Pfizer) [facility] Payers Date Payer Category Payer Self-pay [id number] 2023 Private Health Insurance [id number] Unknown [id number] Unknown [id number] 2.16.8 [id number] Unknown [id number] 2.16.8 [id number] Unknown [id number] 2.16.8 [id number] Unknown [id number] 2.16.8 [id number] Unknown [id number] 2.16.8 [id number] Unknown [id number] 2.16.8 [id number] Unknown [id number] 2.16.8 [id number] Social History Date Type Detail Facility Start: 05-20-2021 End: 07-12-2023 Tobacco smoking status NHIS Unknown if ever smoked [facility] Start: 12-19-2018 Non-smoker [facility] Start: 1955 Sex Assigned At Female [facility] Start: 07-12-2023 Tobacco smoking stat us NHIS Never smoked tobacco (finding) [facility] Start: 08-24-2024 Sex Female (finding) [facility] Evaluation note 07-04-2024 Note Date & Type Note Facility 07-04-2024 Evaluation note Diagnosis Onset Date Resolution Carotid bruit acute June 8:51am Dyslipidemia acute June 8:51am Elevated coronary artery calcium score chronic June 8:51am [facility] Work Phone: Evaluation note Note Date & Type Note Facility Evaluation note No assessment information availa ble [facility] Work Phone: Evaluation note Note Date & Type Note Facility Evaluation note Diagnosis Onset Date Dyslipidemia acute Elevated coronary artery calcium score chronic [facility] Work Phone: Reason for referral (narrative) Note Date & Type Note Facility Reason for referral (narrative) No reason for referral information available [facility] Work Phone: Chief Complaint and Reason for Visit Chief Complaint SCREENING/OSTEO L HIP PAIN.RX HERE Chief Complaint L HIP PAIN.RX HERE Chief Complaint PREVENTATIVE E ORDER Chief Complaint PREVENTATIVE E ORDER 1 Y FU SCREENING Reason for Visit Dyslipidemia Elevated coronary artery calcium score Chief Complaint E ORDERS Chief Complaint E ORDERS 1 Y FU SCREENING/POST GISELE Reason for Visit Dyslipidemia Elevated coronary artery calcium score Chief Complaint Admit Date Tinnitus, right ear May 26, 2024 10:07am INT LABS June 29, 2024 7 :22am 1 Y FU July 04, 2024 8 :51am CAROTID BRUIT July 28, 2024 8:55am SCREENING August 11, 2024 10:21am Reason for Visit Admit Date Carotid bruit July 04, 2024 8 :51am Dyslipidemia July 04, 2024 8 :51am Elevated coronary artery calcium score J anuary 2024 8:51am Family History Relationship Condition Age at Onset Recorded Date/T mulugeta mother Malignant neoplasm Unknown father Myocardial infarction Unknown Advance Directives Advance Directive Response Recorded Date/ Time Advance Directives Yes December 19 8:22am Living Will Yes December 19, 2018 8 :22am Power of Aircraft [employer]ic Yes December 19, 2018 8:22am Advance Directive Response Recorded Date/ Time Advance Directives Yes December 19 7:22am Living Will Yes December 19, 2018 7 :22am Power of [employer]ic Yes December 19, 2018 7:22am Advance Directive Response Recorded Date/ Time Living Will Yes December 19, 2018 8 :22am Power of [employer]ic Yes December 19, 2018 8:22am Advance Directives Yes December 19 9 8:22am Summary Purpose Additional Source Comments Goals (unrecognized section and content) Goals may be documented in a n alternate sectionGoals may be documented in an alternate sectionGoals may be documented in an alternate sectionGoals may be documented in an alternate sectionGoals may be documented in an alternate sectionGoals may be documented in an alternate sectionGoals may be documented in an alternate sectionGoals may be documented in an alternate section Care Teams (unrecognized sec tion and content) Team Status: Active Member Role Status Dates Dr. Jessika Pink DO Family Provider Active Dr. Jessika Pink DO Primary Care Provider Active Team Status: Inactive Member Role Status Dates Dr. Jessika Pink DO Primary Care Provider, Referring P rovider Active Dr. Darrick Domínguez MD Attending Provider Active Team Status: Active Member Role Status Dates Dr. Jessika Pink DO Primary Care Provider Active Dr. Harris Loo MD Attending Provider Active Team Status: Active Member Role Status Dates Dr. Jessika Pink DO Primary Care Provider Active Bhumi SWAN, PA Attending Provider, Referr ing Provider Active Team Status: Inactive Member Role Status Dates Dr. Jessika Pink DO Primary Care Provider Active Dr. Darrick Domínguez MD Attending Provider Active Team Status: Inactive Member Role Status Dates Dr. Jessika Pink DO Primary Care Provide r, Attending Provider, Referring Provider Active Team Status: Inactive Member Role Status Dates Dr. Jessika Pink DO Primary Care Provider Active Bhumi SWAN, PA Attending Provider, Referr ing Provider Active Team Status: Inactive Member Role Status Dates Dr. Jessika Pink DO Primary Care Provider, Referring P rovider Active Bhumi SWAN, PA Attending Provider Active Team Status: Active Member Role Status Dates Dr. Jessika Pink DO Primary Care Provider, Attending P rovider Active Team Status: Inactive Member Role Status Dates Dr. Jessika Pink DO Primary Care Provider, Attending P rovider Active Team Status: Active Member Role Status Dates Dr. Jessika Pink DO Primary Care Provider Active Team Status: Inactive Member Role Status Dates Dr. Jessika Pink DO Primary Care Provider Active Start: May 26, 2024 End: May 26, 2024 Dr. Boston Wilcox MD Attending Provider Active Start: May 26, 2024 End: May 26, 2024 Dr. Boston Wilcox MD Referring Provider Active Start: May 26, 2024 End: May 26, 2024 Team Status: Inactive Member Role Status Dates Dr. Jessika Pink DO Primary Care Provider Active Start: June 29, 2024 End: June 29, 2024 Bhumi Haro PA, PA Attending Provider Active Start: June 29, 2024 End: June 29, 2024 Bhumi Haro PA, PA Referring Provider Active Start: June 29, 2024 End: June 29, 2024 Team Status: Inactive Member Role Status Dates Dr. Jessika Pink DO Primary Care Provider Active Start: July 04, 2024 End: July 04, 2024 Dr. Jesskia Pink DO Referring Provider Active St art: July 04, 2024 End: July 04, 2024 Bhumi SWAN, PA Attending Provider Active Start: July 04, 2024 End: July 04, 2024 Team Status: Inactive Member Role Status Dates Dr. Jessika Pink DO Primary Care Provider Active Start: July 28, 2024 End: July 28, 2024 Bhumi SWAN PA Attending Provider Active Start: July 28, 2024 End: July 28, 2024 Bhumi Haro PA, PA Referring Provider Active Start: July 28, 2024 End: July 28, 2024 Team Status: Active Member Role Status Dates Dr. Jessika Pink DO Primary Care Provider Active Start: July 28, 2024 Dr. Forrest Burrows MD Attending Provider Active S tart: July 28, 2024 Bhumi Haro PA, PA Referring Provider Active Start: July 28, 2024 Team Status: Inactive Member Role Status Dates Dr. Jessika Pink DO Primary Care Provider Active Start: August 11, 2024 End: August 11, 2024 Dr. Jessika Pink DO Attending Provider Active St art: August 11, 2024 End: August 11, 2024 Dr. Jessika Pink DO Referring Provider Active St art: August 11, 2024 End: August 11, 2024 INFORMATION SOURCE (unrecogn ized section and content) DATE CREATED AUTHOR 08/27/2024 [facility] FOR RECORDS PERTAINING TO PATIENTS WHO ARE OR HAVE BEEN ENROLLED IN A CHEMICAL DEPENDENCY/SUBSTANCEABUSE PROGRAM, SOME INFORMATION MAY BE OMITTED. This clinical summary was aggregated from multiple sources. Caution should be exercised in using it in the provision of clinical care. This summary normalizes information from multiple sources, and as a consequence, information in this document may materially change the coding, format and clinical context of patient data. In addition, data may be omitted in some cases. CLINICAL DECISIONS SHOULD BE BASED ON THE PRIMARY CLINICAL RECORDS. [facility] [employer] [facility]. provides no warranty or guarantee of the accuracy or completeness of information in this document.
[2025-01-05 09:06] LABS: AST(SGOT) 38 U/L (<=31); Alanine Aminotransfer ALT/SGPT 47 U/L (<=34); Albumin, Serum 3.8 g/dL (3.4-4.8); Alkaline Phosphatase 111 U/L (35-104); Bilirubin, Direct 0.11 mg/dL (0.00-0.30); Cholesterol 135 mg/dL (<=200); Globulin 3.1 g/dL (2.2-4.2); Low Density Lipoprotein Calc. 63 mg/dL; Triglycerides 101 mg/dL; Very Low Density Lipoprotein 20 mg/dL (5-40); cholesterol:hdl ratio screen 2.62
== END | disposition home or self-care (01) ==
LOC: LAB 07:16
PROVIDERS: PCP Family Medicine; Referring Provider Physician Assistant Medical; Visit Provider Physician Assistant Medical
DX: E78.00 Pure hypercholesterolemia, unspecified (principal)
CPT/HCPCS: 36415; 80061; 80076